=== PATIENT | male | born 1955 | race Caucasian/White ===

== ENCOUNTER 2022-06-07 10:27 | Emergency (ER) | payer BC, SELFPAY ==
--- NOTE | ~2022-06-07 | XR_ITS ---
EXAMINATION: XR CHEST CLINICAL INFORMATION: SOB COMPARISON: None TECHNIQUE: Frontal view of the chest was obtained. FINDINGS: No significant abnormality is noted involving the heart, lungs, mediastinum, bony thorax or soft tissues. XR/XR chest 1V IMPRESSION: Unremarkable chest examination.
--- NOTE | ~2022-06-07 | CT_ITS ---
EXAMINATION: CT HEAD WITHOUT CONTRAST CLINICAL INFORMATION: Numbness left upper extremity. Dizziness. COMPARISON: None. TECHNIQUE: Contiguous axial imaging was performed from the skull base to vertex without intravenous administration of contrast. Coronal and sagittal reformatted images are performed at the CT scanner. [This CT examination was performed using dose optimization techniques as appropriate, variously including the following: *Automated exposure control *Adjustment of mA and/or kV according to patient size (this includes techniques or standardized protocols for targeted exams where dose is matched to indication/reason for exam; i.e. extremities or head) *Use of iterative reconstruction technique] DLP: 750 mGy-cm. FINDINGS: There is no evidence of acute intracranial hemorrhage or territorial infarction. No abnormal mass-effect or midline shift is seen. Cortes to white matter differentiation is well preserved. No extra-axial fluid collections are identified. There is generalized global volume loss. There is mild prominence of the ventricles and the sulci . There are vascular calcifications of the internal carotid arteries bilaterally. There is no osseous abnormality. The mastoid air cells and visualized portions of the paranasal sinuses are well-aerated. CT/CT head/brain wo IV con IMPRESSION: No acute intracranial pathology.
[2022-06-07 10:31] VITALS: BP 148/97; PULSE 103; RESP 18; TEMP 36.6; O2SAT 98; BMI 27.3
--- NOTE | 2022-06-07 10:34 | ECG_ITS ---
Test Reason : dizziness Blood Pressure : / mmHG Vent. Rate : 097 BPM Atrial Rate : 097 BPM P-R Int : 138 ms QRS Dur : 090 ms QT Int : 346 ms P-R-T Axes : 037 000 034 degrees QTc Int : 439 ms Normal sinus rhythm Intra-ventricular conduction delay RSR' or QR pattern in V1 suggests right ventricular conduction delay Borderline ECG No previous ECGs available Referred By: Generic ED Physician Electronically Signed By:BRENDA FERNANDES MD
[2022-06-07 10:44] LABS: MANUAL DIFF FLAG NO
[2022-06-07 10:56] LABS: Basophils Percent Auto 0.5 % (0-2); Eosinophils Percent Auto 0.5 % (0-4); Hemoglobin 16.1 g/dl (14.0-18.0); Imm Gran Abs Auto 0.03 X10*3/uL (0.00-0.03); Imm Gran Pct Auto 0.5 % (0.0-0.4); Lymphocytes Absolute Auto 1.7 X10*3/uL (1.2-4.9); Lymphocytes Percent Auto 29.3 % (20-40); Mean Corpuscular HGB Conc 34.3 g/dl (31.0-36.0); Mean Corpuscular Hemoglobin 31.4 pg (27.0-33.0); Mean Corpuscular Volume 91.6 fL (80.0-98.0); Mean Platelet Volume 9.8 fL (9.4-12.4); Monocytes Absolute Auto 0.5 X10*3/uL (0.1-1.2); Monocytes Percent Auto 9.3 % (2-11); Neutrophils Absolute Auto 3.5 x10*3/uL (2.0-8.3); Neutrophils Percent Auto 59.9 % (45-73); Platelet Count 291 X10*3/uL (160-400); Red Blood Count 5.13 X10*6/uL (4.60-5.80); Red Cell Distribution Width 12.7 % (11.0-16.0); White Blood Count 5.8 X10*3/uL (4.8-10.8)
[2022-06-07 11:05] LABS: Anion Gap 15 (12-20); Blood Urea Nitrogen 10 mg/dL (9-16); Calcium 9.4 mg/dL (8.4-10.2); Carbon Dioxide 23 mmol/L (22-29); Chloride 107 mmol/L (96-108); Creatinine Clr Calc Pharmacy 82.7; Estimated Glomerular Filt Rate > 60; Glucose Random 121 mg/dL (60-115); Potassium 4.1 mmol/L (3.3-5.1); Sodium 141 mmol/L (135-145)
[2022-06-07 11:08] LABS: Troponin-I High Sensitivity < 3.5 ng/L (<3.5-35.0)
[2022-06-07 15:06] VITALS: BP 179/98; PULSE 85; RESP 18; TEMP 36.3; O2SAT 98
--- NOTE | 2022-06-07 15:10 | ED_ITS ---
HPI - General Adult General Chief complaint: Dizziness Stated complaint: dizzy, pain and numbness in L leg. Time Seen by Provider: 06/07/22 23:50 Related Data Allergies Allergy/AdvReac Type Severity Reaction Status Date / Time codeine AdvReac Intermediate Vomiting Verified 06/07/22 15:10 [facility] Social History Social History Advance Directives: No Advance Directives Information Provided: No Physical Exam ED Vital Signs: Vital Signs - 24 hr 06/07/22 10:31 06/07/22 15:06 Temperature 97.9 F 97.3 F Pulse Rate 103 H 85 Respiratory Rate 18 18 Blood Pressure 148/97 H 179/98 H Pulse Oximetry 98 98 Oxygen Delivery Method Room Air Room Air BMI result Body Mass Index 27.3 Course Course Course Narrative: RME--67yoM c/o dizziness, fatigue, L leg and arm cramping and numbness x days. Denies CP/SOB, N/V/D Plan: EKG, Labs, CXR, Head CT, UA ordered Medical Decision Making Lab Data Result diagrams: 06/07/22 10:40 06/07/22 10:40 Labs: Lab Results 06/07/22 06/07/22 06/07/22 Range/Units 10:40 10:40 10:40 WBC 5.8 (4.8-10.8) X10*3/uL RBC 5.13 (4.60-5.80) X10*6/uL Hgb 16.1 (14.0-18.0) g/dl Hct 47.0 (42.0-52.0) % MCV 91.6 (80.0-98.0) fL MCH 31.4 (27.0-33.0) pg MCHC 34.3 (31.0-36.0) g/dl RDW 12.7 (11.0-16.0) % Plt Count 291 (160-400) X10*3/uL MPV 9.8 (9.4-12.4) fL Immature Gran % (Auto) 0.5 H (0.0-0.4) % Neut % (Auto) 59.9 (45-73) % Lymph % (Auto) 29.3 (20-40) % [place] % (Auto) 9.3 (2-11) % Eos % (Auto) 0.5 (0-4) % Baso % (Auto) 0.5 (0-2) % Lymph # (Auto) 1.7 (1.2-4.9) X10*3/uL [place] # (Auto) 0.5 (0.1-1.2) X10*3/uL Eos # (Auto) 0.0 (0.0-0.4) X10*3/uL Baso # (Auto) 0.0 (0.0-0.2) X10*3/uL Abs Immat Gran (auto) 0.03 (0.00-0.03) X10*3/uL Absolute Neuts (auto) 3.5 (2.0-8.3) x10*3/uL Absolute Nucleated RBC 0.000 (0.0-0.012) X10*3/uL Nucleated RBC % (auto) 0.0 (0.0-0.2) /100WBC Sodium 141 (135-145) mmol/L Potassium 4.1 (3.3-5.1) mmol/L Chloride 107 (96-108) mmol/L Carbon Dioxide 23 (22-29) mmol/L Anion Gap 15 (12-20) BUN 10 (9-16) mg/dL Creatinine 0.89 (0.5-1.4) mg/dL Estim Creat Clear Calc 82.7 Estimated GFR > 60 Random Glucose 121 H (60-115) mg/dL Calcium 9.4 (8.4-10.2) mg/dL Magnesium 2.1 (1.6-2.6) mg/dL Total Bilirubin 0.7 (0.0-1.0) mg/dL Direct Bilirubin 0.2 (0.0-0.5) mg/dL AST 16 (5-37) U/L ALT 25 (0-40) U/L Alkaline Phosphatase 49 (39-117) U/L Total Creatine Kinase 59 (38-174) U/L Troponin I High Sens < 3.5 (<3.5-35.0) ng/L Total Protein 7.0 (6.5-8.0) g/dL Albumin 4.4 (3.5-5.0) g/dL Discharge Plan Discharge Clinical Impression: Fatigue, Dizziness Patient Disposition: Elopement Interventions: ED Discharge Assessment Last Done: 06/08/22 00:10 Discharge Date/Time: 06/08/22 00:11
[2022-06-07 15:25] LABS: Alanine Aminotransferase 25 U/L (0-40); Albumin Level 4.4 g/dL (3.5-5.0); Alkaline Phosphatase 49 U/L (39-117); Aspartate Amino Transferase 16 U/L (5-37); Bilirubin Direct 0.2 mg/dL (0.0-0.5); Bilirubin Total 0.7 mg/dL (0.0-1.0); Magnesium 2.1 mg/dL (1.6-2.6)
== END 2022-06-08 00:11 | disposition left against medical advice (07) ==
PROVIDERS: Physician Assistant; Emergency Provider Emergency Medicine; PCP Internal Medicine
DX: R42 Dizziness and giddiness (principal); R53.83 Other fatigue
CPT/HCPCS: 36415; 70450; 71045; 80048; 80076; 82550; 83735; 84484; 85025; 93005; 99283; 99284

== ENCOUNTER 2023-01-10 07:09 | Emergency (ER) | payer BC, SELFPAY ==
[2023-01-10 07:20] VITALS: BP 150/83; PULSE 99; RESP 18; TEMP 35.8; O2SAT 97; BMI 25.8
[2023-01-10 09:10] LABS: Appearance Urine Clear; Glucose Urine UA Negative (Negative); Leukocyte Esterase Urine Trace (Negative); Nitrite Urine Negative (Negative); UMIC TRIGGER UACC YES; Urine Blood Large (3+) (Negative); Urine Ketones Negative (Negative); Urine Protein 30 (1+) mg/dL (Neg-Trace)
[2023-01-10 09:12] LABS: Color Urine Yellow
[2023-01-10 09:13] LABS: Bacteria Urine None Seen (None Seen); Hyaline Casts Urine 0-2 /LPF (0-2); RBC Urine >20 /HPF (0-2); Squamous Epithelial Cell Urine 0-2 /HPF (0-2); WBC Urine 0-5 /HPF (0-5)
--- NOTE | 2023-01-10 09:33 | ED.ABDPAIN ---
HPI - Abdominal Pain General Chief Complaint: Abdominal Pain Stated Complaint: abd pain Time Seen by Provider: 01/10/23 07:25 Source: patient Mode of arrival: ambulatory Limitations: no limitations History of Present Illness HPI narrative: 67-year-old male presents with lower abdominal pain. The pain is moderate to severe. The pain radiates to the back. It is associated with mild nausea. He has had significantly decreased urine output and dysuria. He has had no fevers or chills. There is no clear relieving or exacerbating features. He denies any hematuria. He was seen by his primary care provider and started on Bactrim. Ultimately urinalysis demonstrated no evidence of urinary tract infection. Related Data Previous Rx's Medication Instructions Recorded ciprofloxacin HCl 500 mg tablet 500 mg PO BID #14 tabs 01/10/23 (Cipro) tamsulosin 0.4 mg capsule (Flomax) 0.4 mg PO DAILY #14 caps 01/10/23 Allergies Allergy/AdvReac Type Severity Reaction Status Date / Time codeine AdvReac Intermediate Vomiting Verified 01/10/23 07:23 Review of Systems Review of Systems CONSTITUTIONAL: Denies weight loss, fever and chills. HEENT: Denies changes in vision and hearing. RESPIRATORY: Denies SOB and cough. CV: Denies palpitations no CP. GI: + abdominal pain, negative nausea, vomiting and diarrhea. : See HPI MSK: Denies myalgia and joint pain. SKIN: Denies rash and pruritus. NEUROLOGICAL: Denies headache and syncope. PSYCHIATRIC: Denies recent changes in mood. Denies anxiety and depression. All other ROS are negative unless in HPI PMFSH Social History Social History Advance Directives: No Physical Exam ED Vital Signs: Vital Signs - 24 hr 01/10/23 07:20 Temperature 96.4 F L Pulse Rate 99 Respiratory Rate 18 Blood Pressure 150/83 H Pulse Oximetry 97 BMI result Body Mass Index 25.8 GEN: Well developed, no acute distress, alert, oriented HEENT: Normocephalic, atraumatic, normal external ears, nose appears normal, no oropharyngeal edema or exudates Eyes: Normal to appearance Neck: Supple, no lymphadenopathy Respiratory: Talks in complete sentences, no respiratory distress, clear to auscultation bilaterally Cardiovascular: Regular rate and rhythm, no murmurs rubs or gallops Abdomen: Lower abdominal distention, palpable bladder to the umbilicus, tenderness, no rebound or guarding Back: No CVA tenderness Extremities: No clubbing cyanosis or edema Neurologic: No focal neurologic deficits, cranial nerves 2-12 intact, strength is 5/5 bilaterally Skin: No rash Course Course Course Narrative: Patient presents with acute urinary obstruction. Suspect prostatitis. Henry catheter was placed. His pain significantly diminished after 2 L of urine was drained. Patient will start tamsulosin and antibiotics and follow-up with Urology early next week for Henry catheter removal. Medical Decision Making Medical Decision Making [facility] Narrative: 67-year-old male presents with urinary symptoms as well as lower abdominal pain. S suspect patient has now had obstruction. Will do bladder scan, obtain urinalysis and possible Henry catheter. If his bladder scan is negative, could be diverticulitis, colitis, mass effect, appendicitis, UTI, pyelonephritis. Would consider additional laboratory analysis and CT scan. Differential Diagnosis Differential Diagnoses: The differential diagnosis associated with the presentation includes (See above) Urinary tract outlet obstruction Lab Data [facility] Lab Attestation statement: I reviewed the patient's lab results. Labs: Lab Results 01/10/23 Range/Units 08:55 Urine Color Yellow Urine Appearance Clear Urine pH 6.0 (5.0-9.0) Ur Specific [place] 1.010 (1.005-1.025) Urine Protein 30 (1+) H (Neg-Trace) mg/dL Urine Glucose (UA) Negative (Negative) mg/dL Urine Ketones Negative (Negative) mg/dL Urine Blood Large (3+) H (Negative) Urine Nitrite Negative (Negative) Ur Leukocyte Esterase Trace H (Negative) Urine RBC >20 H (0-2) /HPF Urine WBC 0-5 (0-5) /HPF Ur Squamous Epith Cells 0-2 (0-2) /HPF Urine Bacteria None Seen (None Seen) Hyaline Casts 0-2 (0-2) /LPF Independent Historian Clinical information obtained from an independent historian. History obtained from or confirmed by: Spouse Prescription Management I considered prescription management with: Pain Medication and Antibiotic Discharge Plan Discharge Clinical Impression: Acute urinary retention Patient Disposition: Home, Self-Care Instructions: Urinary Retention in Men (ED), Henry Catheter Placement and Care (ED) Prescriptions: New ciprofloxacin HCl [Cipro] 500 mg tablet 500 mg PO BID Qty: 14 0RF tamsulosin [Flomax] 0.4 mg capsule 0.4 mg PO DAILY Qty: 14 0RF Referrals: Nas Quintero MD [Physician] - 3 days
[2023-01-10] MEDS: levoFLOXacin 500 MG TABLET PO (09:38)
[2023-01-10] MEDS: Tamsulosin HCL 0.4 MG CAPSULE PO (09:38)
== END 2023-01-10 09:44 | disposition home or self-care (01) ==
PROVIDERS: Emergency Provider Emergency Medicine; PCP Internal Medicine
DX: N13.9 Obstructive and reflux uropathy, unspecified (principal); R33.9 Retention of urine, unspecified; R11.2 Nausea with vomiting, unspecified; M54.50 Low back pain, unspecified
CPT/HCPCS: 51798; 81001; 99283; 99284

== ENCOUNTER 2023-02-08 10:22 | Outpatient (AMB) | payer BC, SELFPAY ==
--- NOTE | 2023-02-08 09:31 | MHC.OFFVIS ---
Intake Intake Visit Reasons: ER follow up/voiding trial Intake Note: NEW Patient presents today to established treatment for Acute Urinary Retention/ER follow-up/Voiding Trial. Meds- none Allergies to Antibiotic- Penicillin's Blood Thinner- none PVR- Studio Camera Operator Required: No Accompanied by: Self / Same As Patient Allergies codeine Adverse Reaction (Intermediate, Verified 02/08/23 10:43) Vomiting Medication List - Last Reconciled 02/08/23 by Nas Quintero MD duloxetine 40 mg PO DAILY tamsulosin (Flomax) 0.4 mg PO BEDTIME zolpidem 10 mg PO DAILY PRN HPI HPI Comments History of Present Illness Details Rosalio is a 67-year-old male who presents to the office as a new patient evaluation for ER follow-up and voiding trail. 02/08/23-- The patient presented to [facility] with his fiance. The patient visited the ER on 01/10/23 and Henry catheter was placed for urinary retention. He presented to ED for lower abdominal pain radiating to the back. The patient complained of decreased urine output and dysuria. He was prescribed with Cipro 500 mg BIS for 7 days along with 14-days course of tamsulosin 0.4 mg QD. States visiting the PCP before the ER visit for urinary frequency after every 20 minutes with mild dysuria and was treated with antibiotics. 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 Mentions PSA testing with his PCP. He is currently on duloxetine 40 mg daily, omeprazole 40 mg daily, and zolpidem 10 mg daily. The patient states he has symptoms of neuropathy. Evaluation today: Bladder scan PVR1: 509 mL. The patient was unable to void. 16 Fr Henry catheter was placed. The patient was educated on how to plug the end of the catheter and drain it every 3 hours after which he can use the gravity bag at night time. It was discussed that with age the prostate gets larger, it can affect the flow of the urine and over time the bladder muscle may apply more pressure to start the urine stream and in doing so the bladder muscle can start to thicken and change which may cause bladder spasm with symptoms of urgency and frequency. Plan: CTAP with contrast was ordered. Continue tamsulosin 0.4 mg QD. Cysctoscopy discussed to be scheduled. Review of Systems Const All systems reviewed & are unremarkable except as noted in HPI and below Reports no additional complaints Eyes Reports no additional complaints ENT Reports no additional complaints Card Denies dyspnea Resp Denies cough and Denies dyspnea GI Reports no additional complaints Musc Reports no additional complaints Skin/Breast Denies rash and Denies unusual bruising Neuro Reports no additional complaints Psych Reports no additional complaints Endo Reports no additional complaints Maury/Lymph Reports no additional complaints Aller/Immun Reports no additional complaints Physical Exam Const General: healthy appearing, no acute distress and well developed Orientation/consciousness: patient oriented x3 HEENT Head: Yes normocephalic and Yes atraumatic Eyes Conjunctivae: conjunctivae normal Neck Neck: Yes normal visual inspection Chest Chest palpation & inspection: normal inspection of the chest Resp Effort & Inspection: normal respiratory effort Cardio Rate: regular rate GI Inspection: Yes normal to inspection Palpation (GI): Soft to palpation Skin General skin exam: no rashes or lesions noted Neuro General: patient oriented x3 Extrem General: No pedal edema Psych Appearance: grossly normal Affect: normal affect Office Procedures Bladder/Catheter Procedure Details: 120 mls sterile water instilled into bladder, 18 fr cath w 10 ml balloon removed, pt tolerated removal well, urinal given. pt returned to office, per Dr Sahni pt given macrobid 100 mg 1 tab , prepped with one lido urojet and 16 coude cath with blue plug placed, pt declined night time bag. 08819-Lmhjrschlt of Bladder Procedure code (CPT) selection complete Assessment & Plan Assessment & Plan (1) Urinary retention: Code(s): R33.9 - Retention of urine, unspecified Plan CTAP with contrast was ordered. Continue tamsulosin 0.4 mg QD. Cysctoscopy discussed to be scheduled. Orders: Orders CT abdomen pelvis wo/w IV con 02/08/23 R33.9 - Retention of urine, unspecified Urine Culture 02/08/23 N39.0 - Urinary tract infection, site not specified AMB Bladder/Catheter Procedure 02/08/23 R33.8 - Other retention of urine Medications: New tamsulosin (Flomax) 0.4 mg PO BEDTIME 30 caps 1RF Patient Instructions: The patient had an opportunity to ask questions regarding treatment plan. All questions were answered. Imaging, Laboratory studies and physical exam results were discussed and reviewed in detail. No major barriers to understanding were identified. The patient expressed understanding and agreement with the above treatment plan. The patient is aware they should contact our office by phone for worsening of their current condition or the appearance of new symptoms. Compliance is encouraged with any medications and followup testing that is ordered. It is a privilege to be allowed the opportunity to participate in the urologic care of your patient. If you have any questions or concerns regarding treatment for the above conditions please do not hesitate to contact me. The office telephone contact is [phone]. This note is constructed in part using voice recognition software. While every effort has been made to ensure accuracy senior market intelligence consultant errors may have been included. Yours sincerely, Nas Quintero MD Coding Level of Care Code New Pt Level 4 (78096) Diagnoses Urinary retention R33.9 CPT Codes Bladder/Catheter Procedure - CPT: 63144-Ftcihajghb of Bladder ([id number])
== END 2023-02-08 11:49 | disposition home or self-care (01) ==
PROVIDERS: PCP Internal Medicine; Visit Provider Urology
DX: R33.9 Retention of urine, unspecified (principal)
CPT/HCPCS: 51700; 99204

== ENCOUNTER 2023-02-08 10:22 | Outpatient (REF) | payer BC, SELFPAY | END 2023-02-08 10:23 | disposition home or self-care (01) | LOC: HO.LAB 10:22 | PROVIDERS: PCP Internal Medicine; Visit Provider Urology | DX: N39.0 Urinary tract infection, site not specified (principal); R33.9 Retention of urine, unspecified | CPT/HCPCS: 51700; 87086 ==

== ENCOUNTER 2023-03-11 13:06 | Outpatient (REF) | payer BC, SELFPAY ==
[2023-03-11 16:12] LABS: Appearance Urine Turbid; Color Urine Yellow; Glucose Urine UA Negative (Negative); Leukocyte Esterase Urine Large (3+) (Negative); Nitrite Urine Negative (Negative); PH 5.5 (5.0-9.0); Specific Gravity - Urine 1.015 (1.005-1.025); UMIC TRIGGER UA YES; Urine Blood Moderate (2+) (Negative); Urine Ketones Negative (Negative); Urine Protein 30 (1+) mg/dL (Neg-Trace)
[2023-03-11 16:28] LABS: Bacteria Urine None Seen (None Seen); Hyaline Casts Urine 0-2 /LPF (0-2); Squamous Epithelial Cell Urine 0-2 /HPF (0-2); WBC Urine >50 /HPF (0-5)
== END 2023-03-11 13:07 | disposition home or self-care (01) ==
LOC: HO.HMGCLDS 13:06
PROVIDERS: PCP Internal Medicine; Visit Provider Urology
DX: R33.9 Retention of urine, unspecified (principal)
CPT/HCPCS: 81001; 87086

== ENCOUNTER 2023-03-13 10:47 | Outpatient (AMB) | payer BC, SELFPAY ==
--- NOTE | 2023-03-13 11:22 | AM.OFFVISNUR ---
Intake Intake Visit Reasons: voiding trial Allergies codeine Adverse Reaction (Intermediate, Verified 02/08/23 10:43) Vomiting Office Procedures Bladder/Catheter Procedure Details: 120 mls sterile water instilled into bladder, 16 fr cath removed. pt tolerated removal well. urinated into urinal 140 mls yellow urine. bladder scanned for 96 mls. pt instructed to increase fluid intake today, call office by 2 pm if unable to or having difficulty urinating, has cysto scheduled with Dr Sahni 03/22. pt agreeable to plan. 56052-[id number] of Bladder Procedure code (CPT) selection complete Post Void Residual Post Residual Void Post Void Residual (PVR): 96 [id number] Void Residual by ultrasound Coding Diagnoses CPT Codes Bladder/Catheter Procedure - CPT: 11327-Xowchasprk of Bladder ([id number]) Post Residual Void - PVR CPT Code: 91191-Htqx Void Residual by ultrasound ([id number]) Assessment & Plan Assessment & Plan Orders: Orders AMB Bladder/Catheter Procedure Today R33.9 - Retention of urine, unspecified AMB Post Void Residual by ultrasound Today R33.9 - Retention of urine, unspecified
== END 2023-03-13 12:01 | disposition home or self-care (01) ==
PROVIDERS: PCP Internal Medicine; Visit Provider Urology
DX: R33.9 Retention of urine, unspecified (principal)

== ENCOUNTER → 2023-03-13 10:47 | Outpatient (BNVA) | payer BC, SELFPAY | PROVIDERS: PCP Internal Medicine; Visit Provider Urology | DX: R33.9 Retention of urine, unspecified (principal) | CPT/HCPCS: 51700; 51798 ==

== ENCOUNTER 2023-03-15 08:18 | Outpatient (REF) | payer BC, SELFPAY ==
--- NOTE | ~2023-03-15 | CT_ITS ---
EXAMINATION: CT ABDOMEN AND PELVIS WITHOUT AND WITH CONTRAST CLINICAL INFORMATION: Urinary retention COMPARISON: None available. TECHNIQUE: Multidetector volumetric imaging was performed of the abdomen and pelvis before and after the IV administration of 85 mL of Omnipaque 350 intravenous contrast. Sagittal and coronal reformatted images were obtained on the technologist's workstation. This CT examination was performed using dose optimization techniques as appropriate, variously including the following: *Automated exposure control *Adjustment of mA and/or kV according to patient size (this includes techniques or standardized protocols for targeted exams where dose is matched to indication/reason for exam; i.e. extremities or head) *Use of iterative reconstruction technique DLP: 769 mGy-cm FINDINGS: LUNG BASES: The visualized lung bases are unremarkable. LIVER, GALLBLADDER, AND BILIARY TREE: The liver is normal in size, shape, and attenuation. No focal hepatic lesion or biliary ductal dilatation is present. The gallbladder is unremarkable with no evidence of radiopaque gallstones, gallbladder wall thickening, or obvious pericholecystic inflammatory changes. PANCREAS: Unremarkable SPLEEN: Unremarkable ADRENAL GLANDS: Fullness of the left adrenal gland. No definite nodule seen. The right adrenal gland is normal. KIDNEYS AND URETERS: There is a 4 mm stone in the lower pole of the left kidney. There are bilateral peripelvic and left renal cortical cysts. No imaging follow-up recommended. No hydronephrosis. There is some distortion of the collecting systems from the cyst. Collecting systems are otherwise normal. There is good opacification of the right ureter with excreted contrast which is normal-appearing. There is not optimal contrast opacification of the left mid and distal ureter. The left ureter does not appear dilated. BLADDER: There is diffuse bladder wall thickening. There is some mild stranding of the perivesicular fat. There is a small amount of air in the bladder. Prostate gland is enlarged and heterogeneous appearing and protrudes into the base of the bladder. No definite bladder mass is appreciated. GASTROINTESTINAL TRACT: There is diverticulosis of the colon. No evidence of diverticulitis. Small and large bowel is otherwise unremarkable. The appendix is unremarkable. There may be fold thickening of the stomach. ABDOMINAL WALL: Small umbilical hernia containing fat. Bilateral inguinal hernias containing fat. LYMPH NODES: There is an enlarged right pelvic sidewall lymph node measuring 1 x 1.5 cm axial image 70 series 13. There is a smaller right internal iliac pelvic lymph node measuring 5 mm axial image 75 series 13. There is a small right common iliac lymph node measuring 8 mm in short axis axial image 61 series 13. VASCULAR: Unremarkable PELVIC VISCERA: The prostate gland is enlarged and heterogeneous appearing and protrudes into the base of the bladder. The prostate gland measures 6 x 6 x 6 cm in dimension and is lobulated in contour. The seminal vesicles appear enlarged. There are cystic changes. OSSEOUS STRUCTURES: Small sclerotic lesion in the right iliac bone, right posterior 11th rib and L3 vertebral body. Degenerative changes of the spine. CT/CT abdomen pelvis wo/w IV con IMPRESSION: Enlarged very heterogeneous prostate gland that protrudes into the base of the bladder. There is some stranding of the perivesicular fat and mild diffuse bladder wall thickening. No bladder mass is appreciated. Small amount of air in the bladder. Clinically correlate i.e. has there been recent bladder catheterization. Differential would include infection and less likely fistula. Both seminal vesicles are enlarged with cystic changes. Right pelvic retroperitoneal lymphadenopathy. There is a slightly enlarged right iliac bifurcation or pelvic sidewall lymph node. Other pelvic lymph nodes are normal in size. Distorted bilateral renal collecting systems from bilateral renal peripelvic cysts. Collecting systems are otherwise normal. Normal-appearing right ureter. Left ureter not optimally opacified with excreted contrast. Fullness of the left adrenal gland. No definite adrenal mass. Mild diverticulosis of the colon. Question prominent folds or thickening in the proximal stomach. Fleischner guidelines were followed.
[2023-03-15] MEDS: iohexoL 350 MG/ML 75 ML INFUS..BTL 85 ML IV (09:41)
[2023-03-18 09:48] LABS: Creatinine POC 0.9 mg/dL (0.5-1.4); GFR POC > 60
== END 2023-03-15 08:19 | disposition home or self-care (01) ==
LOC: HO.CT 08:18
PROVIDERS: PCP Internal Medicine; Visit Provider Urology
DX: R33.9 Retention of urine, unspecified (principal)
CPT/HCPCS: 74178; 82565; Q9967

== ENCOUNTER 2023-03-17 14:34 | Emergency (ER) | payer BC, SELFPAY ==
--- NOTE | ~2023-03-17 | US_ITS ---
EXAMINATION: US SCROTUM CLINICAL INFORMATION: Left pain and swelling.. COMPARISON: None available. TECHNIQUE: A sonogram of the scrotum was performed assessing mckee-scale appearance and color Doppler flow. Spectral Doppler analysis of the arterial and venous flow were performed in the testes bilaterally. FINDINGS: RIGHT: Right testicle measures 5.1 x 2.9 x 3.9 cm, volume 29.7 mL. No focal testicular parenchymal lesions are visualized. Spectral Doppler analysis of the arterial and venous flow is increased in the right testis. Incidental finding of a right appendix testes along the superior pole is noted. Right epididymal head is normal in size. There anechoic cysts seen in the body of the right epididymis measuring 0.5 x 0.3 x 0.4 cm. No right hydrocele or varicocele is seen. Right epididymal Doppler flow is normal. LEFT: Left testicle measures 5.4 x 3.8 x 3.5 cm, volume 37.6 mL. No focal testicular parenchymal lesions are visualized. Spectral Doppler analysis of the arterial and venous flow is increased in the left testis. Left epididymal head is normal in size. There is a complex left hydrocele with septations. No varicocele is seen. Left epididymal Doppler flow is normal. US/US scrotum doppler IMPRESSION: 1. Complex left hydrocele with septations. 2. Small right epididymal body cyst. 3. Normal testes with increased vascularity. Incidental finding of right appendix testes.
--- NOTE | ~2023-03-17 | US_ITS ---
EXAMINATION: US SCROTUM CLINICAL INFORMATION: Left pain and swelling.. COMPARISON: None available. TECHNIQUE: A sonogram of the scrotum was performed assessing mckee-scale appearance and color Doppler flow. Spectral Doppler analysis of the arterial and venous flow were performed in the testes bilaterally. FINDINGS: RIGHT: Right testicle measures 5.1 x 2.9 x 3.9 cm, volume 29.7 mL. No focal testicular parenchymal lesions are visualized. Spectral Doppler analysis of the arterial and venous flow is increased in the right testis. Incidental finding of a right appendix testes along the superior pole is noted. Right epididymal head is normal in size. There anechoic cysts seen in the body of the right epididymis measuring 0.5 x 0.3 x 0.4 cm. No right hydrocele or varicocele is seen. Right epididymal Doppler flow is normal. LEFT: Left testicle measures 5.4 x 3.8 x 3.5 cm, volume 37.6 mL. No focal testicular parenchymal lesions are visualized. Spectral Doppler analysis of the arterial and venous flow is increased in the left testis. Left epididymal head is normal in size. There is a complex left hydrocele with septations. No varicocele is seen. Left epididymal Doppler flow is normal. US/US scrotum IMPRESSION: 1. Complex left hydrocele with septations. 2. Small right epididymal body cyst. 3. Normal testes with increased vascularity. Incidental finding of right appendix testes.
[2023-03-17 14:58] VITALS: BP 159/92; PULSE 101; RESP 20; TEMP 37.1; O2SAT 99; BMI 24.6
--- NOTE | 2023-03-17 15:04 | ED_ITS ---
HPI - Male Genitourinary General Chief complaint: Urogenital-Male Stated complaint: L testicle swollen / abd pain Time Seen by Provider: 03/17/23 17:39 Source: patient Mode of arrival: ambulatory Limitations: no limitations History of Present Illness HPI Narrative: Patient with history of BPH with urinary retention status post Stevens catheter placement on 03/14 comes for increased swelling of the left testicle since early today with redness of the scrotal area no fever no chills patient also noticed some pus discharge around the Stevens catheter. Related Data Home Medications Medication Instructions Recorded Confirmed duloxetine 20 mg capsule,delayed 40 mg PO DAILY 02/08/23 02/08/23 release zolpidem 10 mg tablet 10 mg PO DAILY PRN 02/08/23 02/08/23 Previous Rx's Medication Instructions Recorded bethanechol chloride 25 mg tablet 25 mg PO BID 30 days #60 tabs 03/15/23 tamsulosin 0.4 mg capsule 0.8 mg PO DAILY 30 days #60 caps 03/15/23 cefuroxime axetil 500 mg tablet 500 mg PO BID 7 days #14 tabs 03/17/23 doxycycline hyclate 100 mg tablet 100 mg PO BID #20 tabs 03/17/23 Allergies Allergy/AdvReac Type Severity Reaction Status Date / Time codeine AdvReac Intermediate Vomiting Verified 02/08/23 10:43 Review of Systems Review of Systems: Yes all other systems are reviewed and are negative [facility] Social History Social History Alcohol intake: current Alcohol intake frequency: holidays/special occasions only Smoked in Last 30 Days: No Use of substances other than those prescribed or required for medical reasons: Yes Substance Use Type: Marijuana Advance Directives: No Advance Directives Information Provided: No Physical Exam Vital Signs: Vital Signs: Last Vital Signs Temp 98.7 F 03/17/23 14:58 Pulse 91 03/17/23 17:48 Resp 14 03/17/23 17:48 BP 146/80 H 03/17/23 17:48 Pulse Ox 100 03/17/23 17:48 O2 Del Method Room Air 03/17/23 17:48 BMI result Body Mass Index 24.6 Appearance: Alert. Oriented X3. No acute distress. Neck: Normal inspection. Neck supple. CVS: Normal heart rate and rhythm. Pulses normal. Respiratory: No respiratory distress. Equal air entry bilateral, no wheezing/rales/rhonchi Abdomen: Soft and nontender. Bowel sounds are present, no mass palpable, no CVA tenderness Skin: Skin warm and dry. Normal skin color. Normal skin turgor. Extremities: No lower extremity edema. No calf tenderness Neuro: Oriented X 3. No motor deficit. No sensory deficit.No cerebellar signs , cranial nerves II-XII intact Course Course Course Narrative: RME: 67 yold male presents to the ED for left testicular redness and swelling. patient states no recent trauma to scrotum. patient has h stevens. labs and US ordered Medications Administered Discontinued Medications Generic Name Dose Route Start Last Admin Trade Name Freq PRN Reason Stop Dose Admin Cefuroxime Axetil 500 mg 03/17/23 18:09 03/17/23 18:21 Cefuroxime Axetil 500 Mg Tablet PO 03/17/23 18:10 500 mg ONCE ONE Administration Doxycycline Monohydrate 100 mg 03/17/23 18:08 03/17/23 18:21 Doxycycline Monohydrate 100 Mg Capsule PO 03/17/23 18:09 100 mg ONCE ONE Administration Medical Decision Making Lab Data 03/17/23 15:13 03/17/23 15:13 Labs: Lab Results 03/17/23 03/17/23 03/17/23 Range/Units 15:13 15:13 15:17 WBC 13.9 H (4.8-10.8) X10*3/uL RBC 4.60 (4.60-5.80) X10*6/uL Hgb 14.5 (14.0-18.0) g/dl Hct 42.8 (42.0-52.0) % MCV 93.0 (80.0-98.0) fL MCH 31.5 (27.0-33.0) pg MCHC 33.9 (31.0-36.0) g/dl RDW 12.7 (11.0-16.0) % Plt Count 318 (160-400) X10*3/uL MPV 9.1 L (9.4-12.4) fL Immature Gran % (Auto) 0.5 H (0.0-0.4) % Neut % (Auto) 78.7 H (45-73) % Lymph % (Auto) 10.7 L (20-40) % [place] % (Auto) 9.2 (2-11) % Eos % (Auto) 0.6 (0-4) % Baso % (Auto) 0.3 (0-2) % Lymph # (Auto) 1.5 (1.2-4.9) X10*3/uL [place] # (Auto) 1.3 H (0.1-1.2) X10*3/uL Eos # (Auto) 0.1 (0.0-0.4) X10*3/uL Baso # (Auto) 0.0 (0.0-0.2) X10*3/uL Abs Immat Gran (auto) 0.07 H (0.00-0.03) X10*3/uL Absolute Neuts (auto) 10.9 H (2.0-8.3) x10*3/uL Absolute Nucleated RBC 0.000 (0.0-0.012) X10*3/uL Nucleated RBC % (auto) 0.0 (0.0-0.2) /100WBC Sodium 138 (135-145) mmol/L Potassium 3.9 (3.3-5.1) mmol/L Chloride 105 (96-108) mmol/L Carbon Dioxide 23 (22-29) mmol/L Anion Gap 14 (12-20) BUN 10 (9-16) mg/dL Creatinine 0.97 (0.5-1.4) mg/dL Estim Creat Clear Calc 75.9 Estimated GFR > 60 Random Glucose 97 (60-115) mg/dL Calcium 10.0 D (8.4-10.2) mg/dL Total Bilirubin 0.7 (0.0-1.0) mg/dL AST 11 (5-37) U/L ALT 13 (0-40) U/L Alkaline Phosphatase 59 (39-117) U/L Total Protein 7.2 (6.5-8.0) g/dL Albumin 4.0 (3.5-5.0) g/dL Urine Color Yellow Urine Appearance Cloudy Urine pH 6.0 (5.0-9.0) Ur Specific [place] 1.010 (1.005-1.025) Urine Protein 30 (1+) H (Neg-Trace) mg/dL Urine Glucose (UA) Negative (Negative) mg/dL Urine Ketones Negative (Negative) mg/dL Urine Blood Moderate (2+) H (Negative) Urine Nitrite Negative (Negative) Ur Leukocyte Esterase Large (3+) H (Negative) Urine RBC 6-10 H (0-2) /HPF Urine WBC >50 H (0-5) /HPF Ur Squamous Epith Cells 0-2 (0-2) /HPF Urine Bacteria None Seen (None Seen) Hyaline Casts 0-2 (0-2) /LPF Discharge Plan Discharge Clinical Impression: Acute hydrocele, Urinary tract infection Patient Disposition: Home, Self-Care Instructions: Hydrocele (ED), Urinary Tract Infection in Men (DC) Additional Instructions: You have a hydrocele on the left testicle see your urologist for further management Take antibiotic as prescribed likely have atypical bacteria in your urine Drink plenty of fluids Prescriptions: New cefuroxime axetil 500 mg tablet 500 mg PO BID 7 Days Qty: 14 0RF doxycycline hyclate 100 mg tablet 100 mg PO BID Qty: 20 0RF No Action bethanechol chloride 25 mg tablet 25 mg PO BID 30 Days Qty: 60 1RF tamsulosin 0.4 mg capsule 0.8 mg PO DAILY 30 Days Qty: 60 1RF duloxetine 20 mg capsule,delayed release(DR/EC) 40 mg PO DAILY zolpidem 10 mg tablet 10 mg PO DAILY PRN Interventions: ED Discharge Assessment Last Done: 03/17/23 18:26 Discharge Date/Time: 03/17/23 18:26
[2023-03-17 15:23] LABS: MANUAL DIFF FLAG NO
[2023-03-17 15:27] LABS: Appearance Urine Cloudy; Color Urine Yellow; Glucose Urine UA Negative (Negative); Leukocyte Esterase Urine Large (3+) (Negative); Nitrite Urine Negative (Negative); UMIC TRIGGER UACC YES; Urine Blood Moderate (2+) (Negative); Urine Ketones Negative (Negative); Urine Protein 30 (1+) mg/dL (Neg-Trace)
[2023-03-17 15:29] LABS: Bacteria Urine None Seen (None Seen); Hyaline Casts Urine 0-2 /LPF (0-2); Squamous Epithelial Cell Urine 0-2 /HPF (0-2); UACC Culture Trigger YES; WBC Urine >50 /HPF (0-5)
[2023-03-17 15:29] LABS: Basophils Percent Auto 0.3 % (0-2); Eosinophils Absolute Auto 0.1 X10*3/uL (0.0-0.4); Eosinophils Percent Auto 0.6 % (0-4); Hematocrit 42.8 % (42.0-52.0); Hemoglobin 14.5 g/dl (14.0-18.0); Imm Gran Abs Auto 0.07 X10*3/uL (0.00-0.03); Imm Gran Pct Auto 0.5 % (0.0-0.4); Lymphocytes Absolute Auto 1.5 X10*3/uL (1.2-4.9); Lymphocytes Percent Auto 10.7 % (20-40); Mean Corpuscular HGB Conc 33.9 g/dl (31.0-36.0); Mean Corpuscular Hemoglobin 31.5 pg (27.0-33.0); Mean Platelet Volume 9.1 fL (9.4-12.4); Monocytes Absolute Auto 1.3 X10*3/uL (0.1-1.2); Monocytes Percent Auto 9.2 % (2-11); Neutrophils Absolute Auto 10.9 x10*3/uL (2.0-8.3); Neutrophils Percent Auto 78.7 % (45-73); Platelet Count 318 X10*3/uL (160-400); Red Cell Distribution Width 12.7 % (11.0-16.0); White Blood Count 13.9 X10*3/uL (4.8-10.8)
[2023-03-17 16:02] LABS: Alanine Aminotransferase 13 U/L (0-40); Alkaline Phosphatase 59 U/L (39-117); Anion Gap 14 (12-20); Aspartate Amino Transferase 11 U/L (5-37); Bilirubin Total 0.7 mg/dL (0.0-1.0); Blood Urea Nitrogen 10 mg/dL (9-16); Carbon Dioxide 23 mmol/L (22-29); Chloride 105 mmol/L (96-108); Creatinine Clr Calc Pharmacy 75.9; Estimated Glomerular Filt Rate > 60; Glucose Random 97 mg/dL (60-115); Potassium 3.9 mmol/L (3.3-5.1); Sodium 138 mmol/L (135-145); Total Protein 7.2 g/dL (6.5-8.0)
[2023-03-17 17:48] VITALS: BP 146/80; PULSE 91; RESP 14; O2SAT 100
[2023-03-17] MEDS: Doxycycline Monohydrate 100 MG CAPSULE PO (18:21)
[2023-03-18 05:44] LABS: CT PCR NOT DETECTED (Not Detect.); NG PCR NOT DETECTED (Not Detect.)
== END 2023-03-17 18:26 | disposition home or self-care (01) ==
PROVIDERS: Physician Assistant; Emergency Provider Internal Medicine; PCP Internal Medicine
DX: N43.3 Hydrocele, unspecified (principal); N39.0 Urinary tract infection, site not specified; R10.2 Pelvic and perineal pain; Z79.899 Other long term (current) drug therapy
CPT/HCPCS: 0353U; 36415; 76870; 80053; 81001; 85025; 87086; 87088; 87186; 93975; 99284

== ENCOUNTER 2023-03-17 23:35 | Inpatient (IN) | payer BC, SELFPAY ==
[2023-03-17 23:39] VITALS: BP 104/60; PULSE 102; RESP 18; TEMP 37.1; O2SAT 99; BMI 25.4
[2023-03-18] VITALS (10 sets, daily range): BP systolic 99–141; BP diastolic 57–76; PULSE 92–112; RESP 16–18; TEMP 36.3–39.6; O2SAT 95–99; BMI 25.3
--- NOTE | 2023-03-18 00:15 | ED.MALEGU ---
HPI - Male Genitourinary General Chief complaint: Urogenital-Male Stated complaint: Increased pain with fever Time Seen by Provider: 03/18/23 00:15 Source: patient Mode of arrival: ambulatory Limitations: no limitations History of Present Illness HPI Narrative: Patient with history of BPH status for Henry catheter placement on 03/14 just seen in the ER for left scrotal swelling since yesterday ultrasound showed separate F hydrocele patient went home and had fever of 102 with increased pain in left testicle area. Patient have any fever before but had subjective feeling hot for last 2 days Related Data Home Medications Medication Instructions Recorded Confirmed duloxetine 20 mg capsule,delayed 40 mg PO DAILY 02/08/23 02/08/23 release zolpidem 10 mg tablet 10 mg PO DAILY PRN 02/08/23 02/08/23 Previous Rx's Medication Instructions Recorded bethanechol chloride 25 mg tablet 25 mg PO BID 30 days #60 tabs 03/15/23 tamsulosin 0.4 mg capsule 0.8 mg PO DAILY 30 days #60 caps 03/15/23 cefuroxime axetil 500 mg tablet 500 mg PO BID 7 days #14 tabs 03/17/23 doxycycline hyclate 100 mg tablet 100 mg PO BID #20 tabs 03/17/23 Allergies Allergy/AdvReac Type Severity Reaction Status Date / Time codeine AdvReac Intermediate Vomiting Verified 03/17/23 23:44 Review of Systems Review of Systems: Yes all other systems are reviewed and are negative [facility] Social History Social History Alcohol intake: current Alcohol intake frequency: holidays/special occasions only Substance Use Type: Marijuana Advance Directives: No Advance Directives Information Provided: Yes Physical Exam Vital Signs: Vital Signs: Last Vital Signs Temp 99.6 F 03/18/23 00:47 Pulse 102 H 03/17/23 23:39 Resp 18 03/17/23 23:39 BP 104/60 03/17/23 23:39 Pulse Ox 99 03/17/23 23:39 O2 Del Method Room Air 03/17/23 23:39 BMI result Body Mass Index 25.4 Appearance: Alert. Oriented X3. No acute distress. Eyes: PERRLA, No Nystagmus ENT: Pharynx normal. Oral Mucosa moist Neck: Normal inspection. Neck supple. CVS: Normal heart rate and rhythm. Pulses normal. Respiratory: No respiratory distress. Equal air entry bilateral, no wheezing/rales/rhonchi Abdomen: Soft and nontender. Bowel sounds are present, no mass palpable, no CVA tenderness : Swelling of the left testicle area 2 times of the right side with tenderness and erythema Skin: Skin warm and dry. Normal skin color. Normal skin turgor. Extremities: No lower extremity edema. No calf tenderness Neuro: Oriented X 3. Medications Administered Generic Name Dose Route Start Last Admin Trade Name Freq PRN Reason Stop Dose Admin Sodium Chloride 1,000 mls @ 999 mls/hr 03/18/23 00:21 03/18/23 00:46 Ns IV 03/18/23 01:21 999 mls/hr .Q1H1M ONE Administration Discontinued Medications Generic Name Dose Route Start Last Admin Trade Name Freq PRN Reason Stop Dose Admin Piperacillin Sod/Tazobactam 50 mls @ 100 mls/hr 03/18/23 00:22 03/18/23 00:47 Sod 3.375 gm/ Sodium Chloride IV 03/18/23 00:51 100 mls/hr ONCE ONE Administration Ketorolac Tromethamine 30 mg 03/18/23 00:22 03/18/23 00:46 Ketorolac Tromethamine 30 Mg/Ml Vial IVPUSH 03/18/23 00:23 30 mg ONCE ONE Administration Medical Decision Making Medical Decision Making [facility] Narrative: Patient with left septated hydrocele now comes with fever possible epididymal orchitis case discussed with urologist admit to medical service IV antibiotics Differential Diagnosis Differential Diagnoses: The differential diagnosis associated with the presentation includes Epididymo-orchitis/prostatitis/sepsis Admission/Observation Consideration of admission/observation: Escalation of care including admission/observation considered Consult Healthcare Provider Management of the patient was discussed with: Hospitalist Lab Data [facility] Lab Attestation statement: I reviewed the patient's lab results. Labs: Lab Results 03/18/23 Range/Units 00:38 Lactic Acid 1.1 (0.5-2.0) mmol/L Discharge Plan Discharge Clinical Impression: Acute epididymo-orchitis, Urinary tract infection Patient Disposition: Admitted As Inpatient
[2023-03-18] MEDS: 0.9 % Sodium Chloride 1,000 ML 999 ML IV (00:46)
[2023-03-18] MEDS: Ketorolac Tromethamine 30 MG/ML VIAL IVPUSH (00:46)
[2023-03-18] MEDS: Piperacillin Sodium/Tazobactam 3.375 GM in 0.9 % Sodium Chloride 50 ML IV (00:47)
[2023-03-18 00:55] LABS: Lactic Acid 1.1 mmol/L (0.5-2.0)
--- NOTE | 2023-03-18 01:15 | P.HPHOSP_ITS ---
History of Present Illness Date of Service: 03/18/23 Chief Complaint: Fever This is a 67-year-old male with pertinent history of BPH, chronic Henry catheter due to urine retention, peripheral neuropathy, mood disorder who presents to the emergency department for evaluation of fever and testicular pain. Patient st ates he started having testicular pain that has been progressive over the last 24 hours. It is associated with redness and tenderness. Patient was seen earlier in the day in the ER and sent home on p.o. antibiotics. Patient states his pain was not controlled and he started having fever which prompted repeat ER visit. Does have associated fevers and chills. No chest discomfort, palpitations, shortness of breath, changes in bowel habits. Also has diffused lower abdominal pain In the emergency department, urology was consulted who requested admission for possible epididymitis. Review of Systems Constitutional: Constitutional: Reports chills and Reports fever(s) Cardiovascular: Cardiovascular: Reports no additional cardiovascular complaints Respiratory: Respiratory: Reports no additional respiratory complaints Gastrointestinal: Gastrointestinal: Reports no additional gastrointestinal complaints Genitourinary: Genitourinary: Reports scrotal swelling and Reports testicular pain PMFSH Medical History Mood disorder Neuropathy, lower extremity Urinary retention Pertinent family history: No family history of early CAD Social History Alcohol intake: current Alcohol intake frequency: holidays/special occasions only Substance Use Type: Marijuana Advance Directives: No Advance Directives Information Provided: Yes Meds Allergies Allergy/AdvReac Type Severity Reaction Status Date / Time codeine AdvReac Intermediate Vomiting Verified 03/17/23 23:44 Active Medications: Current Medications Acetaminophen (Acetaminophen 325 Mg Tablet) 650 mg PO Q6H PRN PRN Reason: Pain, Mild (Pain Scale 1-3) Enoxaparin Sodium (Enoxaparin Sodium 40 Mg/0.4 Ml Syringe) 40 mg SUBCUT Q24H PEDRITO Sodium Chloride (Ns) 1,000 mls @ 999 mls/hr IV .Q1H1M ONE Stop: 03/18/23 01:21 Last Admin: 03/18/23 00:46 Dose: 999 mls/hr Melatonin (Melatonin 3 Mg Tablet) 6 mg PO BEDTIME PRN PRN Reason: Insomnia Ondansetron HCl (Ondansetron Hcl 4 Mg/2 Ml Vial) 4 mg IVPUSH Q8H PRN PRN Reason: Nausea and Vomiting Sodium Chloride (0.9 % Sodium Chloride Flush 3 Ml Syringe) [facility] Medications Medication Instructions Recorded Confirmed Last Taken Type duloxetine 20 mg capsule,delayed 40 mg PO DAILY 02/08/23 02/08/23 Unknown History release zolpidem 10 mg tablet 10 mg PO DAILY PRN 02/08/23 02/08/23 Unknown History Physical Exam Vital Signs and Narrative: Vital Signs: Last Vital Signs Temp 99.6 F 03/18/23 00:47 Pulse 102 H 03/17/23 23:39 Resp 18 03/17/23 23:39 BP 104/60 03/17/23 23:39 Pulse Ox 99 03/17/23 23:39 O2 Del Method Room Air 03/17/23 23:39 BMI result Body Mass Index 25.4 Middle-aged male lying in bed in mild distress Neck supple, no JVD Tachycardic with regular, S1-S2 heard Regular breath sounds bilaterally, no wheezing or crackles appreciated Abdomen with generalized tenderness, no guarding, no rigidity, no rebound tenderness Testicular swelling with tenderness and erythema present Patient is awake, alert and oriented to self, place, time and person ; no focal motor deficit Psych: Normal mood No pedal edema Results Labs Labs: Laboratory Results - last 24 hr 03/18/23 00:38 Lactic Acid 1.1 Assessment and Plan (1) Sepsis: Status: Acute Plan This is a 67-year-old male with pertinent history of BPH, chronic Henry catheter due to urine retention, peripheral neuropathy, mood disorder who presents to the emergency department for evaluation of fever and testicular pain. #. Sepsis due to possible epididymo-orchitis: Will admit patient and initiate empiric IV antibiotics. Resuscitated with IV crystalloids. Urology was consulted from the ER, appreciate assistance. Blood cultures and lactic acid obtained. Patient at no risk of STI #. Peripheral neuropathy: Continue Cymbalta #. Chronic urinary retention/BPH. Continue bethanechol and Flomax. On chronic Henry #. Mood disorder. Continue home mood stabilizers Med rec pending DVT prophylaxis: Lovenox Full code Admit as inpatient and will require two night minimum hospital stay for IV antibiotics Time Spent With Patient Time: Total time managing care of this patient today ____ minutes. Quality Stroke Does the patient have a stroke diagnosis?: No VTE Prior VTE?: No VTE Risk Level:: Medical - moderate - high VTE Device Contraindication: Treatment Not Indicated VTE Drug Contraindication: N/A - Med Ordered
[2023-03-18] MEDS: cefTRIAXone sodium 1 GM in 0.9 % Sodium Chloride 50 ML IV ×2 (02:10→20:53)
[2023-03-18] MEDS: Zolpidem Tartrate 5 MG TABLET PO ×2 (02:10→20:53)
[2023-03-18] MEDS: Morphine Sulfate 2 MG/ML CARTRIDGE IVPUSH (02:25)
--- NOTE | 2023-03-18 02:31 | PC.NURSE ---
pt reassessed, reported increased lower abd pain, medicated with 2 mg of morphine ivp
[2023-03-18 05:16] LABS: Basophils Absolute Auto 0.1 X10*3/uL (0.0-0.2); Basophils Percent Auto 0.3 % (0-2); Eosinophils Absolute Auto 0.1 X10*3/uL (0.0-0.4); Eosinophils Percent Auto 0.4 % (0-4); Hematocrit 36.9 % (42.0-52.0); Hemoglobin 12.7 g/dl (14.0-18.0); Imm Gran Abs Auto 0.31 X10*3/uL (0.00-0.03); Imm Gran Pct Auto 1.2 % (0.0-0.4); Lymphocytes Absolute Auto 0.6 X10*3/uL (1.2-4.9); Lymphocytes Percent Auto 2.3 % (20-40); MANUAL DIFF FLAG SCAN; Mean Corpuscular HGB Conc 34.4 g/dl (31.0-36.0); Mean Corpuscular Hemoglobin 31.8 pg (27.0-33.0); Mean Corpuscular Volume 92.5 fL (80.0-98.0); Mean Platelet Volume 9.4 fL (9.4-12.4); Monocytes Absolute Auto 1.5 X10*3/uL (0.1-1.2); Monocytes Percent Auto 5.9 % (2-11); Neutrophils Percent Auto 89.9 % (45-73); Platelet Count 266 X10*3/uL (160-400); Red Blood Count 3.99 X10*6/uL (4.60-5.80); Red Cell Distribution Width 12.7 % (11.0-16.0); SCAN SMEAR FLAG 1; White Blood Count 25.6 X10*3/uL (4.8-10.8)
[2023-03-18 05:33] LABS: Anion Gap 12 (12-20); Blood Urea Nitrogen 10 mg/dL (9-16); Carbon Dioxide 21 mmol/L (22-29); Chloride 106 mmol/L (96-108); Creatinine Clr Calc Pharmacy 65.9; Estimated Glomerular Filt Rate > 60; Glucose Random 127 mg/dL (60-115); Potassium 3.4 mmol/L (3.3-5.1); Sodium 136 mmol/L (135-145)
[2023-03-18] MEDS: Morphine Sulfate 4 MG/ML CARTRIDGE IVPUSH (05:35)
[2023-03-18 05:37] LABS: SLIDE REVIEW VERIFIED
--- NOTE | 2023-03-18 07:39 | PHA.MEDREC ---
Pharmacy Consult ? Medication Reconciliation Pharmacy has completed the medication reconciliation. pt no longer on cymbalta or pristiq [place]
--- NOTE | 2023-03-18 09:45 | PC.NURSE ---
pt refusing bethanechol. temp 103.3F; reports nausea. pt also reporting 5/[address] Nichols notified.
[2023-03-18] MEDS: ondansetron HCL 4 MG/2 ML VIAL IVPUSH (09:54)
[2023-03-18] MEDS: Enoxaparin Sodium 40 MG/0.4 ML SYRINGE SUBCUT (09:54)
[2023-03-18] MEDS: Ibuprofen 600 MG TABLET PO (09:54)
[2023-03-18] MEDS: 0.9 % Sodium Chloride Flush 3 ML SYRINGE IVFLUSH (09:55)
[2023-03-18] MEDS: Tamsulosin HCL 0.4 MG CAPSULE 0.8 MG PO (09:55)
[2023-03-18] MEDS: Acetaminophen 325 MG TABLET 650 MG PO (11:34)
--- NOTE | 2023-03-18 12:06 | PM.UROCN ---
History of Present Illness Consult details Consult date: 03/18/23 Narrative: Orchitis Hydrocele, septated/infected UTI Urinary Retention BPH Review of Systems Review of Systems: 10 point ROS negative other than stated in HPI [facility] Past Medical History Medical History Mood disorder Neuropathy, lower extremity Urinary retention Social History Social History Household Members: Significant Other Housing: House Do you presently have visiting nurse or other home services: No Alcohol intake: never Patient Tobacco Use Status: Former Tobacco user Years Smoked: 10 Smoked in Last 30 Days: No Use of substances other than those prescribed or required for medical reasons: No Substance Use Type: Marijuana Currently Displaying Signs/Symptoms of Drug Intoxication Withdrawal: No Have you been hit, kicked, punched, or otherwise hurt by someone within the past year? If so, by whom?: No Do you feel safe in your current relationship?: Yes Is there a partner from a previous relationship who is making you feel unsafe now?: No Are you made to feel afraid or neglected: No Advance Directives: No Advance Directives Information Provided: Yes Do you have thoughts of harming others: None Do you have a plan to hurt others: No Plan Recently lost weight without trying: Yes How much weight loss: 14-23 pounds Eating poorly because of decreased appetite: Yes Nutrition screen score: 5 Nutrition Risks: No Nutritional Risk service: No Meds Allergies Allergy/AdvReac Type Severity Reaction Status Date / Time codeine AdvReac Intermediate Vomiting Verified 03/17/23 23:44 Active Medications: Current Medications Acetaminophen (Acetaminophen 325 Mg Tablet) 650 mg PO Q6H PRN PRN Reason: Pain, Mild (Pain Scale 1-3) Last Admin: 03/18/23 11:34 Dose: 650 mg Bethanechol Chloride (Bethanechol Chloride 25 Mg Tablet) 25 mg PO BID [facility] Last Admin: 03/18/23 09:48 Dose: Not Given Enoxaparin Sodium (Enoxaparin Sodium 40 Mg/0.4 Ml Syringe) 40 mg SUBCUT Q24H [facility] Last Admin: 03/18/23 09:54 Dose: 40 mg Ceftriaxone Sodium 1 gm/ (Sodium Chloride) 50 mls @ 100 mls/hr IV 2200 [facility] Last Infusion: 03/18/23 02:42 Dose: Infused Ibuprofen (Ibuprofen 600 Mg Tablet) 600 mg PO Q8H PRN PRN Reason: Fever >101 Last Admin: 03/18/23 09:54 Dose: 600 mg Melatonin (Melatonin 3 Mg Tablet) 6 mg PO BEDTIME PRN PRN Reason: Insomnia Morphine Sulfate (Morphine Sulfate 2 Mg/Ml Cartridge) 2 mg IVPUSH Q6H PRN; Protocol PRN Reason: Pain, Severe (Pain Scale 7-10) Ondansetron HCl (Ondansetron Hcl 4 Mg/2 Ml Vial) 4 mg IVPUSH Q8H PRN PRN Reason: Nausea and Vomiting Last Admin: 03/18/23 09:54 Dose: 4 mg Pharmacy Consult (Consult Rx Perform Med Rec) 1 each MISCELLANE ONCE PRN PRN Reason: Consult order Sodium Chloride (0.9 % Sodium Chloride Flush 3 Ml Syringe) 3 ml IVFLUSH QSHIFT [facility] Last Admin: 03/18/23 09:55 Dose: 3 ml Tamsulosin HCl (Tamsulosin Hcl 0.4 Mg Capsule) 0.8 mg PO DAILY [facility] Last Admin: 03/18/23 09:55 Dose: 0.8 mg Zolpidem Tartrate (Zolpidem Tartrate 5 Mg Tablet) 5 mg PO DAILY PRN PRN Reason: Sleep Home Medications Medication Instructions Recorded Confirmed Last Taken Type zolpidem 10 mg tablet 10 mg PO DAILY PRN Sleep 02/08/23 03/18/23 03/16/23 22:00 History omeprazole 40 mg capsule,delayed 40 mg PO DAILY 03/18/23 03/18/23 Unknown History release Physical Exam Vital Signs: Vital Signs: Last Vital Signs Temp 103.2 F H 03/18/23 11:35 Pulse 112 H 03/18/23 11:35 Resp 16 03/18/23 11:35 BP 106/63 03/18/23 11:35 Pulse Ox 95 03/18/23 11:35 O2 Del Method Room Air 03/18/23 11:35 BMI result Body Mass Index 25.4 Results Labs 03/18/23 04:35 03/18/23 04:35 Labs: Abnormal lab results 03/18/23 03/18/23 Range/Units 04:35 04:35 WBC 25.6 H (4.8-10.8) X10*3/uL RBC 3.99 L (4.60-5.80) X10*6/uL Hgb 12.7 L (14.0-18.0) g/dl Hct 36.9 L (42.0-52.0) % Immature Gran % (Auto) 1.2 H (0.0-0.4) % Neut % (Auto) 89.9 H (45-73) % Lymph % (Auto) 2.3 L (20-40) % Lymph # (Auto) 0.6 L (1.2-4.9) X10*3/uL [place] # (Auto) 1.5 H (0.1-1.2) X10*3/uL Abs Immat Gran (auto) 0.31 H (0.00-0.03) X10*3/uL Absolute Neuts (auto) 23.0 H (2.0-8.3) x10*3/uL Carbon Dioxide 21 L (22-29) mmol/L Random Glucose 127 H (60-115) mg/dL Short CBC 03/18/23 Range/Units 04:35 WBC 25.6 H (4.8-10.8) X10*3/uL Hgb 12.7 L (14.0-18.0) g/dl Hct 36.9 L (42.0-52.0) % Plt Count 266 (160-400) X10*3/uL BMP 03/18/23 04:35 Sodium 136 Potassium 3.4 Chloride 106 Carbon Dioxide 21 L BUN 10 Creatinine 1.08 Calcium 9.0 D All other labs normal. Imaging Additional studies: Date of Service: 03/17/23 EXAMINATION: US SCROTUM CLINICAL INFORMATION: Left pain and swelling.. COMPARISON: None available. TECHNIQUE: A sonogram of the scrotum was performed assessing mckee-scale appearance and color Doppler flow. Spectral Doppler analysis of the arterial and venous flow were performed in the testes bilaterally. FINDINGS: RIGHT: Right testicle measures 5.1 x 2.9 x 3.9 cm, volume 29.7 mL. No focal testicular parenchymal lesions are visualized. Spectral Doppler analysis of the arterial and venous flow is increased in the right testis. Incidental finding of a right appendix testes along the superior pole is noted. Right epididymal head is normal in size. There anechoic cysts seen in the body of the right epididymis measuring 0.5 x 0.3 x 0.4 cm. No right hydrocele or varicocele is seen. Right epididymal Doppler flow is normal. LEFT: Left testicle measures 5.4 x 3.8 x 3.5 cm, volume 37.6 mL. No focal testicular parenchymal lesions are visualized. Spectral Doppler analysis of the arterial and venous flow is increased in the left testis. Left epididymal head is normal in size. There is a complex left hydrocele with septations. No varicocele is seen. Left epididymal Doppler flow is normal. IMPRESSION: 1.? Complex left hydrocele with septations. 2.? Small right epididymal body cyst. 3.? Normal testes with increased vascularity. Incidental finding of right appendix testes. Date of Service: 03/15/23 Procedure(s): CT abdomen pelvis wo/w IV con Accession Number(s): [id number] cc: Nas Quintero MD~ EXAMINATION: CT ABDOMEN AND PELVIS WITHOUT AND WITH CONTRAST? CLINICAL INFORMATION: Urinary retention? COMPARISON: None available. TECHNIQUE: Multidetector volumetric imaging was performed of the abdomen and pelvis before and after the IV administration of 85 mL of Omnipaque 350 intravenous contrast. Sagittal and coronal reformatted images were obtained on the technologist's workstation. This CT examination was performed using dose optimization techniques as appropriate, variously including the following: *Automated exposure control *Adjustment of mA and/or kV according to patient size (this includes techniques or standardized protocols for targeted exams where dose is matched to indication/reason for exam; i.e. extremities or head) *Use of iterative reconstruction technique DLP: 769 mGy-cm FINDINGS: LUNG BASES: The visualized lung bases are unremarkable.? LIVER, GALLBLADDER, AND BILIARY TREE: The liver is normal in size, shape, and attenuation. No focal hepatic lesion or biliary ductal dilatation is present. The gallbladder is unremarkable with no evidence of radiopaque gallstones, gallbladder wall thickening, or obvious pericholecystic inflammatory changes.? PANCREAS: Unremarkable? SPLEEN: Unremarkable? ADRENAL GLANDS: Fullness of the left adrenal gland. No definite nodule seen. The right adrenal gland is normal. KIDNEYS AND URETERS: There is a 4 mm stone in the lower pole of the left kidney. There are bilateral peripelvic and left renal cortical cysts. No imaging follow-up recommended. No hydronephrosis. There is some distortion of the collecting systems from the cyst. Collecting systems are otherwise normal. There is good opacification of the right ureter with excreted contrast which is normal-appearing. There is not optimal contrast opacification of the left mid and distal ureter. The left ureter does not appear dilated. BLADDER: There is diffuse bladder wall thickening. There is some mild stranding of the perivesicular fat. There is a small amount of air in the bladder. Prostate gland is enlarged and heterogeneous appearing and protrudes into the base of the bladder. No definite bladder mass is appreciated.? GASTROINTESTINAL TRACT: There is diverticulosis of the colon. No evidence of diverticulitis. Small and large bowel is otherwise unremarkable. The appendix is unremarkable. There may be fold thickening of the stomach.? ABDOMINAL WALL: Small umbilical hernia containing fat. Bilateral inguinal hernias containing fat.? LYMPH NODES: There is an enlarged right pelvic sidewall lymph node measuring 1 x 1.5 cm axial image 70 series 13. There is a smaller right internal iliac pelvic lymph node measuring 5 mm axial image 75 series 13. There is a small right common iliac lymph node measuring 8 mm in short axis axial image 61 series 13. VASCULAR: Unremarkable PELVIC VISCERA: The prostate gland is enlarged and heterogeneous appearing and protrudes into the base of the bladder. The prostate gland measures 6 x 6 x 6 cm in dimension and is lobulated in contour. The seminal vesicles appear enlarged. There are cystic changes.? OSSEOUS STRUCTURES: Small sclerotic lesion in the right iliac bone, right posterior 11th rib and L3 vertebral body. Degenerative changes of the spine. IMPRESSION: Enlarged very heterogeneous prostate gland that protrudes into the base of the bladder. There is some stranding of the perivesicular fat and mild diffuse bladder wall thickening. No bladder mass is appreciated. Small amount of air in the bladder. Clinically correlate i.e. has there been recent bladder catheterization. Differential would include infection and less likely fistula. Both seminal vesicles are enlarged with cystic changes. Right pelvic retroperitoneal lymphadenopathy. There is a slightly enlarged right iliac bifurcation or pelvic sidewall lymph node. Other pelvic lymph nodes are normal in size. Distorted bilateral renal collecting systems from bilateral renal peripelvic cysts. Collecting systems are otherwise normal. Normal-appearing right ureter. Left ureter not optimally opacified with excreted contrast. Fullness of the left adrenal gland. No definite adrenal mass. Mild diverticulosis of the colon. Question prominent folds or thickening in the proximal stomach.? Assessment and Plan (1) Acute epididymo-orchitis: Status: Acute (2) Urinary tract infection: Status: Acute Urine Culture Preliminary 03/18/23-1244 Organism 1 Enterococcus/Streptococcus sp Quant > 100,000 cfu/mL (3) Urinary retention: Status: Acute Plan Cont IV Rocephin Sensitivities pending on urine c/s Time Spent With Patient Time: Total time managing care of this patient today ____ minutes. Procedures Date of Service Date of Service: 03/19/23
--- NOTE | 2023-03-18 12:10 | MHC.CM.PN ---
This news writer met with patient for CM assessment. From home, no services, Currently employed. HCP copy @ home. PCP verified. Independent. DCP- home no services, significant other to transport.
--- NOTE | 2023-03-18 14:50 | PC.NURSE ---
report given to [facility] nurse dyan
[2023-03-18] MEDS: Bethanechol Chloride 25 MG TABLET PO (20:53)
[2023-03-19 04:00] VITALS: BP 108/58; PULSE 92; RESP 15; TEMP 37.4; O2SAT 98
--- NOTE | 2023-03-19 04:00 | ECG_ITS ---
Test Reason : CHEST PAIN Blood Pressure : / mmHG Vent. Rate : 079 BPM Atrial Rate : 079 BPM P-R Int : 128 ms QRS Dur : 094 ms QT Int : 360 ms P-R-T Axes : 057 024 047 degrees QTc Int : 412 ms Normal sinus rhythm ST elevation consider inferolateral injury or acute infarct ACUTE ID / STEMI Abnormal ECG When compared with ECG of 07-JUN-2022 10:32, ST elevation now present in Inferior leads ST elevation now present in Lateral leads ST elevation consider inferolateral injury or acute infarct Referred By: Clif Mena Electronically Signed By:JEANNIE THOMAS
--- NOTE | 2023-03-19 04:05 | ECG_ITS ---
Test Reason : chest pain Blood Pressure : / mmHG Vent. Rate : 082 BPM Atrial Rate : 082 BPM P-R Int : 134 ms QRS Dur : 094 ms QT Int : 366 ms P-R-T Axes : 049 014 038 degrees QTc Int : 427 ms Normal sinus rhythm Possible Left atrial enlargement ST elevation consider inferolateral injury or acute infarct ACUTE PR / STEMI Abnormal ECG When compared with ECG of 19-MAR-2023 04:13, ST less elevated in Lateral leads Referred By: Clif Mena Electronically Signed By:JEANNIE THOMAS
--- NOTE | 2023-03-19 04:10 | ECG_ITS ---
Test Reason : chest pain Blood Pressure : / mmHG Vent. Rate : 084 BPM Atrial Rate : 084 BPM P-R Int : 132 ms QRS Dur : 092 ms QT Int : 364 ms P-R-T Axes : 054 027 049 degrees QTc Int : 430 ms Normal sinus rhythm ST elevation consider inferolateral injury or acute infarct ACUTE [place] / STEMI Abnormal ECG When compared with ECG of 19-MAR-2023 04:12, No significant change was found Referred By: Clif Mena Electronically Signed By:JEANNIE THOMAS
[2023-03-19 04:43] VITALS: BP 92/58; PULSE 66; RESP 18; TEMP 36.2; O2SAT 97
--- NOTE | 2023-03-19 04:43 | P.EN_ITS ---
Event Note Date of Service: 03/19/23 Event Note: DR Fagan Pt woke up wioth right sided cp, dull pressure like radiating to back constant, not worsened with deep inspiration. Resolved after receiving aspirin 325 as well as morphine 2 mg. Patient hemodynamically stable otherwise. EKG showing inferior lateral ST elevations with anterior ST depressions and T-wave inversions. Spoke to her stage setting painter apprentice, recommended transferring to [facility]. Patient started on heparin, and will be transferred to [facility] Time Spent With Patient Time: Total time managing care of this patient today ____ minutes.
[2023-03-19] MEDS: Aspirin Enteric Coated 325 MG TABLET.DR PO (04:48)
[2023-03-19] MEDS: Morphine Sulfate 2 MG/ML CARTRIDGE IVPUSH (04:52)
[2023-03-19 04:53] LABS: Hematocrit 36.5 % (42.0-52.0); Hemoglobin 12.7 g/dl (14.0-18.0); Mean Corpuscular HGB Conc 34.8 g/dl (31.0-36.0); Mean Corpuscular Hemoglobin 31.8 pg (27.0-33.0); Mean Corpuscular Volume 91.5 fL (80.0-98.0); Mean Platelet Volume 9.3 fL (9.4-12.4); Platelet Count 253 X10*3/uL (160-400); Red Blood Count 3.99 X10*6/uL (4.60-5.80); Red Cell Distribution Width 12.9 % (11.0-16.0); White Blood Count 28.6 X10*3/uL (4.8-10.8)
--- NOTE | 2023-03-19 05:04 | PM.DS ---
DS: Providers Provider Date of Service: 03/19/23 Date of admission: 03/18/23 01:13 Primary care physician: Javy Varma MD Consults: 03/18/23 01:47 Consult to Urology Routine Consulting Provider: Nas Quintero Reason for consultation: ?epididymitis DS: Transfer Hospital Acceptance Reason for Transfer: STEMI DS: Diagnosis Discharge Diagnosis (1) Acute epididymo-orchitis: Status: Acute (2) Urinary tract infection: Status: Acute (3) Urinary retention: Status: Acute DS: Summary Hospital Course Hospital Course: From admission H&P: This is a 67-year-old male with pertinent history of BPH, chronic Henry catheter due to urine retention, peripheral neuropathy, mood disorder who presents to the emergency department for evaluation of fever and testicular pain.? Patient states he started having testicular pain that has been progressive over the last 24 hours.? It is associated with redness and tenderness.? Patient was seen earlier in the day in the ER and sent home on p.o. antibiotics.? Patient states his pain was not controlled and he started having fever which prompted repeat ER visit.? Does have associated fevers and chills.? No chest discomfort, palpitations, shortness of breath, changes in bowel habits.? Also has diffused lower abdominal pain In the emergency department, urology was consulted who requested admission for possible epididymitis. Patient was admitted for sepsis secondary to epididymo-orchitis. Patient was started on IV antibiotics. Around 04:30 this morning patient developed right-sided dull constant pain radiating to the back not worsened with deep inspiration. EKG showed STEMI with ST elevations in the inferior lateral leads, discussed with her oxygen equipment preparer, recommended transfer to [facility] for further management. Discussed with the oxygen equipment preparer at [facility], patient given 325 of aspirin, 2 mg of morphine, resolved chest pain. Started on heparin drip, troponin currently pending. Patient will be admitted to [facility] cardiac CCU further management Time Spent with Patient Time attestation: Total time managing care of this patient today ____ minutes. Discharge coordination time: Greater than 30 minutes Quality: Safe Use of Opioids Does Pt have an Active Cancer Diagnosis on the Problem List?: No Quality: Stroke Does the patient have a stroke diagnosis?: No Physical Exam Vital Signs: Vital Signs: Last Vital Signs Temp 97.1 F 03/19/23 04:43 Pulse 66 03/19/23 04:43 Resp 18 03/19/23 04:43 BP 92/58 L 03/19/23 04:43 Pulse Ox 97 03/19/23 04:43 O2 Del Method Room Air 03/19/23 04:43 BMI result Body Mass Index 25.3 DS: Data Data Completed and Pending Labs on day of discharge: Laboratory Results - last 24 hr 03/18/23 03/18/23 03/19/23 04:35 04:35 04:45 WBC 25.6 H 28.6 H RBC 3.99 L 3.99 L Hgb 12.7 L 12.7 L Hct 36.9 L 36.5 L MCV 92.5 91.5 MCH 31.8 31.8 MCHC 34.4 34.8 RDW 12.7 12.9 Plt Count 266 253 MPV 9.4 9.3 L Immature Gran % (Auto) 1.2 H Neut % (Auto) 89.9 H Lymph % (Auto) 2.3 L [place] % (Auto) 5.9 Eos % (Auto) 0.4 Baso % (Auto) 0.3 Lymph # (Auto) 0.6 L [place] # (Auto) 1.5 H Eos # (Auto) 0.1 Baso # (Auto) 0.1 Abs Immat Gran (auto) 0.31 H Absolute Neuts (auto) 23.0 H Absolute Nucleated RBC 0.000 0.000 Nucleated RBC % (auto) 0.0 0.0 Smear Tech's Comments VERIFIED Sodium 136 Potassium 3.4 Chloride 106 Carbon Dioxide 21 L Anion Gap 12 BUN 10 Creatinine 1.08 Estim Creat Clear Calc 65.9 Estimated GFR > 60 Random Glucose 127 H Calcium 9.0 D Preliminary micro results at discharge 03/18/23 00:38 Blood Culture - Preliminary Blood - Venous No growth after 24 hours. 03/18/23 00:38 Blood Culture - Preliminary Blood - Venous No growth after 24 hours. Discharge Plan Discharge Anticipated Discharge Date/Time: 03/19/23 05:08 Patient Disposition: Xfer Acute Care Hospital Discharge Diagnosis: STEMI, epididymo-orchitis Referrals: Javy Varma MD [Primary Care Provider] - 1 Week Discharge Medications: New acetaminophen 325 mg Tablet 650 mg PO Q6H PRN (Reason: Pain, Mild (Pain Scale 1-3)) Qty: 30 0RF melatonin 3 mg Tablet 6 mg PO BEDTIME PRN (Reason: Insomnia) Qty: 30 0RF ceftriaxone 1 gram Recon Soln 1 g IV 2200 Qty: 10 0RF heparin(porcine) in 0.45% NaCl 25,000 unit/250 mL Parenteral Solution 25,000 unit continuous IV infusion .Q0M Qty: 6000 0RF morphine 2 mg/mL Syringe 2 mg IVPUSH Q6H PRN (Reason: Pain, Severe (Pain Scale 7-10)) Qty: 10 0RF Protocol: Hold for RR < HOLD and contact provider for RR < (bpm): 12 Rx Instructions: Partial Fill upon patient request. Continued omeprazole 40 mg capsule,delayed release(DR/EC) 40 mg PO DAILY bethanechol chloride 25 mg tablet 25 mg PO BID 30 Days Qty: 60 1RF Rx Instructions: haven't taken in 2 months tamsulosin 0.4 mg capsule 0.8 mg PO DAILY 30 Days Qty: 60 1RF zolpidem 10 mg tablet 10 mg PO DAILY PRN (Reason: Sleep) Discharge Orders: Discharge Order (Routine); Ordered 03/19/23 Ordered By: Clif Mena Activity on Discharge: As tolerated Stand Alone Forms: Patient Portal Discharge page Care Plan Goals: STEMI Health Concerns: STEMI Plan of Treatment: See above Assessment: See above
[2023-03-19 05:13] VITALS: BP 98/56; PULSE 85; RESP 16; TEMP 37.1; O2SAT 98
[2023-03-19 05:33] LABS: INTERNATIONAL NORM RATIO 1.2 (0.9-1.1); Prothrombin Time 14.1 SEC (11.1-13.3)
[2023-03-19 05:36] LABS: PTT Heparin Drip 30.4 SEC (53-77.9)
[2023-03-19] MEDS: Heparin Sodium,Porcine 5,000 UNIT/ML VIAL 6000 UNIT IVPUSH (05:45)
[2023-03-19] MEDS: Heparin Sodium,Porcine/1/2NS 25,000 UNIT/250 ML IV.SOLN 10.58 UNIT IVCONT (05:45)
--- NOTE | 2023-03-19 06:48 | PC.NURSE ---
Assumed care of patient at 18:45. Patient reported 5/10 right sided dull chest pain. MD notified, EKG ordered. EKG showed normal sinus rhythm with ST elevation. MD notifed and a repeat EKG was done and showed normal sinus rhythm. MD ordered to administer Morphine 2mg IVpush, Asprin PO once, troponins to be drawn and to start heparin drip. Morphine administered with great effect with patient reporting 0/10 chest pain. Troponin obtained reading [id number] and MD notified with no further orders placed. Heparin drip started. Gave report to Armando RN. Hand off report given to EMS for transport.
--- NOTE | 2023-03-19 07:43 | MHC.CM.PN ---
Patient will be dc/transferred to [facility] today.
== END 2023-03-19 07:00 | disposition short-term general hospital (02) | DRG 720 ==
LOC: HO.ED 03-18 01:17 → HO.EDOVER 03-18 02:19 → HO.IMC 03-18 13:29
PROVIDERS: Internal Medicine; Admitting Provider Student in an Organized Health Care Education/Training Program; Emergency Provider Internal Medicine; PCP Internal Medicine; Visit Provider Student in an Organized Health Care Education/Training Program
DX: A41.9 Sepsis, unspecified organism (principal); I21.3 ST elevation (STEMI) myocardial infarction of unspecified site; G62.9 Polyneuropathy, unspecified; N39.0 Urinary tract infection, site not specified; F39 Unspecified mood [affective] disorder; N45.3 Epididymo-orchitis; N40.1 Benign prostatic hyperplasia with lower urinary tract symptoms; R33.8 Other retention of urine; Z79.899 Other long term (current) drug therapy
CPT/HCPCS: 36415; 80048; 83605; 84484; 85025; 85027; 85610; 85730; 87040; 93005; 99285; J0696; J1643; J1650; J1885; J2270; J2405; J2543

== ENCOUNTER → 2023-03-17 23:53 | Outpatient (BNV) | payer BC, SELFPAY | PROVIDERS: Emergency Provider Internal Medicine; PCP Internal Medicine; Visit Provider Student in an Organized Health Care Education/Training Program | DX: N45.3 Epididymo-orchitis (principal); N39.0 Urinary tract infection, site not specified; R33.9 Retention of urine, unspecified | CPT/HCPCS: 99222; 99239; 99499 ==

== ENCOUNTER 2023-03-22 11:25 | Outpatient (AMB) | payer BC, SELFPAY ==
--- NOTE | 2023-03-22 05:38 | A.OFFVIS_ITS ---
Intake Intake Visit Reasons: 1m/CT/cysto Allergies codeine Adverse Reaction (Intermediate, Verified 03/17/23 23:44) Vomiting HPI HPI Comments History of Present Illness Details Rosalio is a 67-year-old male who presents today to the office for a follow-up. 03/22/2023? He was last seen by me on 02/08/2023 for urinary retention. The patient was advised to continue tamsulosin 0.4 mg QD. CTAP with contrast was ordered, and cysctoscopy discussed to be scheduled at that time. I reviewed the US scrotum results from 03/17/2023 revealed complex left hyrocele with septations, small right epididymal body cyst, and normal testes with increased vascularity. Incidental finding of right appendix testes. I reviewed the CT of the abdomen/pelvis results from 03/15/2023 revealed enlarged very heterogeneous prostate gland that protrudes into the base of the bladder. There is some stranding of the perivesicular fat and mild diffuse bladder wall thickening. No bladder mass is appreciated. Small amount of air in the bladder. Clinically correlate i.e. has there been recent bladder catheterization. Differential would include infection and less likely fistula. Both seminal vesicles are enlarged with cystic changes. Right pelvic retroperitoneal lymphadenopathy. There is a slightly enlarged right iliac bifurcation or pelvic sidewall lymph node. Other pelvic lymph nodes are normal in size. Distorted bilateral renal collecting systems from bilateral renal peripelvic cysts. Collecting systems are otherwise normal. Normal-appearing right ureter. Left ureter not optimally opacified with excreted contrast. Fullness of the left adrenal gland. No definite adrenal mass. Mild diverticulosis of the colon. Question prominent folds or thickening invthe proximal stomach. Review of charts: Last visit: 02/08/23-- The patient presented to [facility] with his fiance. The patient visited the ER on 01/10/23 and Henry catheter was placed for urinary retention.? He presented to ED for lower abdominal pain radiating to the back.? The patient complained of decreased urine output and dysuria.? He was prescribed with Cipro 500 mg BIS for 7 days along with 14-days course of tamsulosin 0.4 mg QD. States visiting the PCP before the ER visit for urinary frequency after every 20 minutes with mild dysuria and was treated with antibiotics. 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 Mentions PSA testing with his PCP. He is currently on duloxetine 40 mg daily, omeprazole 40 mg daily, and zolpidem 10 mg daily. The patient states he has symptoms of neuropathy. Evaluation today: Bladder scan PVR1: 509 mL. The patient was unable to void. 16 Fr Henry catheter was placed. The patient was educated on how to plug the end of the catheter and drain it every 3 hours after which he can use the gravity bag at night time. It was discussed that with age the prostate gets larger, it can affect the flow of the urine and over time the bladder muscle may apply more pressure to start the urine stream and in doing so the bladder muscle can start to thicken and change which may cause bladder spasm with symptoms of urgency and frequency. Plan: CTAP with contrast was ordered. Continue tamsulosin 0.4 mg QD. Cysctoscopy discussed to be scheduled.? ? 03/22/2023: Evaluation today?UA? 03/22/2023: Plan: [facility] Medical History Mood disorder Neuropathy, lower extremity Urinary retention Social History Household Members: Significant Other Housing: House Do you presently have visiting nurse or other home services: No Alcohol intake: never Patient Tobacco Use Status: Former Tobacco user Years Smoked: 10 Smoked in Last 30 Days: No Use of substances other than those prescribed or required for medical reasons: No Substance Use Type: Marijuana Currently Displaying Signs/Symptoms of Drug Intoxication Withdrawal: No Have you been hit, kicked, punched, or otherwise hurt by someone within the past year? If so, by whom?: No Do you feel safe in your current relationship?: Yes Is there a partner from a previous relationship who is making you feel unsafe now?: No Are you made to feel afraid or neglected: No Advance Directives: No Advance Directives Information Provided: Yes Do you have thoughts of harming others: None Do you have a plan to hurt others: No Plan Recently lost weight without trying: Yes How much weight loss: 14-23 pounds Eating poorly because of decreased appetite: Yes Nutrition screen score: 5 Nutrition Risks: No Nutritional Risk service: No Results Reviewed Results Reviewed: Date of Service: 03/15/23 EXAMINATION: CT ABDOMEN AND PELVIS WITHOUT AND WITH CONTRAST? CLINICAL INFORMATION: Urinary retention? COMPARISON: None available. FINDINGS: LUNG BASES: The visualized lung bases are unremarkable.? LIVER, GALLBLADDER, AND BILIARY TREE: The liver is normal in size, shape, and attenuation. No focal hepatic lesion or biliary ductal dilatation is present. The gallbladder is unremarkable with no evidence of radiopaque gallstones, gallbladder wall thickening, or obvious pericholecystic inflammatory changes.? PANCREAS: Unremarkable? SPLEEN: Unremarkable? ADRENAL GLANDS: Fullness of the left adrenal gland. No definite nodule seen. The right adrenal gland is normal. KIDNEYS AND URETERS: There is a 4 mm stone in the lower pole of the left kidney. There are bilateral peripelvic and left renal cortical cysts. No imaging follow-up recommended. No hydronephrosis. There is some distortion of the collecting systems from the cyst. Collecting systems are otherwise normal. There is good opacification of the right ureter with excreted contrast which is normal-appearing. There is not optimal contrast opacification of the left mid and distal ureter. The left ureter does not appear dilated. BLADDER: There is diffuse bladder wall thickening. There is some mild stranding of the perivesicular fat. There is a small amount of air in the bladder. Prostate gland is enlarged and heterogeneous appearing and protrudes into the base of the bladder. No definite bladder mass is appreciated.? GASTROINTESTINAL TRACT: There is diverticulosis of the colon. No evidence of diverticulitis. Small and large bowel is otherwise unremarkable. The appendix is unremarkable. There may be fold thickening of the stomach.? ABDOMINAL WALL: Small umbilical hernia containing fat. Bilateral inguinal hernias containing fat.? LYMPH NODES: There is an enlarged right pelvic sidewall lymph node measuring 1 x 1.5 cm axial image 70 series 13. There is a smaller right internal iliac pelvic lymph node measuring 5 mm axial image 75 series 13. There is a small right common iliac lymph node measuring 8 mm in short axis axial image 61 series 13. VASCULAR: Unremarkable PELVIC VISCERA: The prostate gland is enlarged and heterogeneous appearing and protrudes into the base of the bladder. The prostate gland measures 6 x 6 x 6 cm in dimension and is lobulated in contour. The seminal vesicles appear enlarged. There are cystic changes.? OSSEOUS STRUCTURES: Small sclerotic lesion in the right iliac bone, right posterior 11th rib and L3 vertebral body. Degenerative changes of the spine. IMPRESSION: Enlarged very heterogeneous prostate gland that protrudes into the base of the bladder. There is some stranding of the perivesicular fat and mild diffuse bladder wall thickening. No bladder mass is appreciated. Small amount of air in the bladder. Clinically correlate i.e. has there been recent bladder catheterization. Differential would include infection and less likely fistula. Both seminal vesicles are enlarged with cystic changes. Right pelvic retroperitoneal lymphadenopathy. There is a slightly enlarged right iliac bifurcation or pelvic sidewall lymph node. Other pelvic lymph nodes are normal in size. Distorted bilateral renal collecting systems from bilateral renal peripelvic cysts. Collecting systems are otherwise normal. Normal-appearing right ureter. Left ureter not optimally opacified with excreted contrast. Fullness of the left adrenal gland. No definite adrenal mass. Mild diverticulosis of the colon. Question prominent folds or thickening in the proximal stomach. Date of Service: 03/17/23 EXAMINATION: US SCROTUM CLINICAL INFORMATION: Left pain and swelling.. COMPARISON: None available. FINDINGS: RIGHT: Right testicle measures 5.1 x 2.9 x 3.9 cm, volume 29.7 mL. No focal testicular parenchymal lesions are visualized. Spectral Doppler analysis of the arterial and venous flow is increased in the right testis. Incidental finding of a right appendix testes along the superior pole is noted. Right epididymal head is normal in size. There anechoic cysts seen in the body of the right epididymis measuring 0.5 x 0.3 x 0.4 cm. No right hydrocele or varicocele is seen. Right epididymal Doppler flow is normal. LEFT: Left testicle measures 5.4 x 3.8 x 3.5 cm, volume 37.6 mL. No focal testicular parenchymal lesions are visualized. Spectral Doppler analysis of the arterial and venous flow is increased in the left testis. Left epididymal head is normal in size. There is a complex left hydrocele with septations. No varicocele is seen. Left epididymal Doppler flow is normal. IMPRESSION: 1.? Complex left hydrocele with septations. 2.? Small right epididymal body cyst. 3.? Normal testes with increased vascularity. Incidental finding of right appendix testes. Assessment & Plan Assessment & Plan Patient Instructions: The patient had an opportunity to ask questions regarding treatment plan. All questions were answered. Imaging, Laboratory studies and physical exam results were discussed and reviewed in detail. No major barriers to understanding were identified. The patient expressed understanding and agreement with the above treatment plan.? ? ? The patient is aware they should contact our office by phone for worsening of their current condition or the appearance of new symptoms. Compliance is encouraged with any medications and followup testing that is ordered.? ? ? It is a privilege to be allowed the opportunity to participate in the urologic care of your patient. If you have any questions or concerns regarding treatment for the above conditions please do not hesitate to contact me. The office telephone contact is [phone].? ? ? This note is constructed in part using voice recognition software. While every effort has been made to ensure accuracy sandblast or shotblast equipment tender errors may have been included.? ? ? Yours sincerely,? ? ? Nas Quintero MD? ? Coding Diagnoses
--- NOTE | 2023-03-22 11:34 | MHC.OFFVIS ---
Intake Intake Visit Reasons: 1m/CT/cysto Intake Note: Patient presents today for a CYSTOSCOPY Procedure: Meds: Tamsulosin Allergies to Antibiotic: No Known Allergies Blood Thinner: None Urinalysis test clear for Cysto? Disposible Uro-G Cystoscope Cannula: Lot: [id number] Exp: 11/30/2024 Allergies codeine Adverse Reaction (Intermediate, Verified 03/17/23 23:44) Vomiting HPI HPI Comments History of Present Illness Details Rosalio is a 67-year-old male who presents today to the office for a follow-up. Currently on abx for orchitis. Hold on Cysto for today 03/22/2023? He was last seen by me on 02/08/2023 for urinary retention. The patient was advised to continue tamsulosin 0.4 mg QD. CTAP with contrast was ordered, and cysctoscopy discussed to be scheduled at that time. He had failed voiding trial, and he was admitted to hospital for orchitis and urinary tract infection sepsis. Patient states that he was diagnosed with pericarditis. He was transferred to [facility], and was evaluated by deburrer strip. He reports cloudy urine. He is on Levaquin for urinary tract infection sepsis. He states that his deburrer strip told him that his prostate is enlarged. I reviewed the US scrotum results from 03/17/2023 revealed complex left hyrocele with septations, small right epididymal body cyst, and normal testes with increased vascularity. Incidental finding of right appendix testes. I reviewed the CAT scan of the abdomen/pelvis results from 03/15/2023 revealed 4 mm stone in the lower pole of the left kidney and bilateral renal cyst. Heterogenous prostate gland protruding into the base of the bladder. Evaluation: 03/22/23-- scrotum left scrotal swelling and tenderness, stevens in place Review of charts: Last visit: 02/08/23-- The patient presented to [facility] with his fiance. The patient visited the ER on 01/10/23 and Stevens catheter was placed for urinary retention. He presented to ED for lower abdominal pain radiating to the back. The patient complained of decreased urine output and dysuria. He was prescribed with Cipro 500 mg BIS for 7 days along with 14-days course of tamsulosin 0.4 mg QD. States visiting the PCP before the ER visit for urinary frequency after every 20 minutes with mild dysuria and was treated with antibiotics. 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 Mentions PSA testing with his PCP. He is currently on duloxetine 40 mg daily, omeprazole 40 mg daily, and zolpidem 10 mg daily. The patient states he has symptoms of neuropathy. Evaluation today: Bladder scan PVR: 509 mL. The patient was unable to void. 16 Fr Stevens catheter was placed. The patient was educated on how to plug the end of the catheter and drain it every 3 hours after which he can use the gravity bag at night time. It was discussed that with age the prostate gets larger, it can affect the flow of the urine and over time the bladder muscle may apply more pressure to start the urine stream and in doing so the bladder muscle can start to thicken and change which may cause bladder spasm with symptoms of urgency and frequency. Plan:CTAP with contrast was ordered.Continue tamsulosin 0.4 mg QD.Cysctoscopy discussed to be scheduled. 03/22/2023: Plan: Cysto not performed today. Will increase Levaquin from 500 mg to 750 mg dialy. Proscar 5 mg daily was ordered. Advised the patient to discontinue Bethanechol which he did not start, and continue tamsulosin BID 0.4 mg daily. Will keep the Stevens catheter in, and follow up in one week. [facility] Medical History Mood disorder Neuropathy, lower extremity Urinary retention Family History (Updated 03/27/23 @ 12:01 by HENOK Holt) Father No problems noted. Mother No problems noted. Social History Household Members: Significant Other Housing: House Do you presently have visiting nurse or other home services: No Alcohol intake: never Patient Tobacco Use Status: Former Tobacco user Years Smoked: 10 Substance Use Type: Marijuana service: No Review of Systems Const All systems reviewed & are unremarkable except as noted in HPI and below Reports no additional complaints Eyes Reports no additional complaints ENT Reports no additional complaints Card Denies dyspnea Resp Denies cough and Denies dyspnea GI Reports no additional complaints Musc Reports no additional complaints Skin/Breast Denies rash and Denies unusual bruising Neuro Reports no additional complaints Psych Reports no additional complaints Endo Reports no additional complaints Maury/Lymph Reports no additional complaints Aller/Immun Reports no additional complaints Physical Exam Const General: healthy appearing, no acute distress and well developed Orientation/consciousness: patient oriented x3 HEENT Head: Yes normocephalic and Yes atraumatic Eyes Conjunctivae: conjunctivae normal Neck Neck: Yes normal visual inspection Chest Chest palpation & inspection: normal inspection of the chest Resp Effort & Inspection: normal respiratory effort Cardio Rate: regular rate GI Inspection: Yes normal to inspection Palpation (GI): Soft to palpation Other: scrotum left scrotal swelling and tenderness, stevens in place Neuro General: patient oriented x3 Extrem General: No pedal edema Psych Appearance: grossly normal Affect: normal affect Results AMB Urinalysis, Automated UA Leukoctes 70 Kristina/uL Last Edit by Dania Larson CMA on 03/22/23 11:41 1+ Dania Larson 03/22/23 11:41 UA Nitrite Negative Last Edit by Dania Larson CMA on 03/22/23 11:41 UA Urobilinogen 0.2 mg/dL Last Edit by Dania Larson CMA on 03/22/23 11:41 UA Protein 15 mg/dL Last Edit by Dania Larson CMA on 03/22/23 11:41 UA pH 6.0 Last Edit by Dania Larson CMA on 03/22/23 11:41 UA Blood 25 Raimundo/uL Last Edit by Dania Larson CMA on 03/22/23 11:41 1+ Dania Larson 03/22/23 11:41 UA Specific [place] 1.020 Last Edit by Dania Larson CMA on 03/22/23 11:41 UA Ketone Negative Last Edit by Dania Larson CMA on 03/22/23 11:41 UA Bilirubin 0 mg/dL Last Edit by Dania Larson CMA on 03/22/23 11:41 UA Glucose 0 mg/dL Last Edit by Dania Larson CMA on 03/22/23 11:41 Results Reviewed Results Reviewed: Laboratory Last Values Urine pH (Auto) 6.0 03/22/23 11:39 Specific [place] (Auto) 1.020 03/22/23 11:39 Urine Protein (Auto) 15 mg/dL 03/22/23 11:39 Glucose (UA)(Auto) 0 mg/dL 03/22/23 11:39 Urine Ketones (Auto) Negative 03/22/23 11:39 Urine Blood (Auto) 25 Raimundo/uL 03/22/23 11:39 Urine Nitrite (Auto) Negative 03/22/23 11:39 Urine Bilirubin (Auto) 0 mg/dL 03/22/23 11:39 Urine Urobilinogen (Auto) 0.2 mg/dL 03/22/23 11:39 Leukocyte Esterase (Auto) 70 Kristina/uL 03/22/23 11:39 Date of Service: 03/17/23 EXAMINATION: US SCROTUM CLINICAL INFORMATION: Left pain and swelling.. COMPARISON: None available.. FINDINGS: RIGHT: Right testicle measures 5.1 x 2.9 x 3.9 cm, volume 29.7 mL. No focal testicular parenchymal lesions are visualized. Spectral Doppler analysis of the arterial and venous flow is increased in the right testis. Incidental finding of a right appendix testes along the superior pole is noted. Right epididymal head is normal in size. There anechoic cysts seen in the body of the right epididymis measuring 0.5 x 0.3 x 0.4 cm. No right hydrocele or varicocele is seen. Right epididymal Doppler flow is normal. LEFT: Left testicle measures 5.4 x 3.8 x 3.5 cm, volume 37.6 mL. No focal testicular parenchymal lesions are visualized. Spectral Doppler analysis of the arterial and venous flow is increased in the left testis. Left epididymal head is normal in size. There is a complex left hydrocele with septations. No varicocele is seen. Left epididymal Doppler flow is normal. IMPRESSION: 1.? Complex left hydrocele with septations. 2.? Small right epididymal body cyst. 3.? Normal testes with increased vascularity. Incidental finding of right appendix testes. Date of Service: 03/15/23 EXAMINATION: CT ABDOMEN AND PELVIS WITHOUT AND WITH CONTRAST? CLINICAL INFORMATION: Urinary retention? COMPARISON: None available. FINDINGS: LUNG BASES: The visualized lung bases are unremarkable.? LIVER, GALLBLADDER, AND BILIARY TREE: The liver is normal in size, shape, and attenuation. No focal hepatic lesion or biliary ductal dilatation is present. The gallbladder is unremarkable with no evidence of radiopaque gallstones, gallbladder wall thickening, or obvious pericholecystic inflammatory changes.? PANCREAS: Unremarkable? SPLEEN: Unremarkable? ADRENAL GLANDS: Fullness of the left adrenal gland. No definite nodule seen. The right adrenal gland is normal. KIDNEYS AND URETERS: There is a 4 mm stone in the lower pole of the left kidney. There are bilateral peripelvic and left renal cortical cysts. No imaging follow-up recommended. No hydronephrosis. There is some distortion of the collecting systems from the cyst. Collecting systems are otherwise normal. There is good opacification of the right ureter with excreted contrast which is normal-appearing. There is not optimal contrast opacification of the left mid and distal ureter. The left ureter does not appear dilated. BLADDER: There is diffuse bladder wall thickening. There is some mild stranding of the perivesicular fat. There is a small amount of air in the bladder. Prostate gland is enlarged and heterogeneous appearing and protrudes into the base of the bladder. No definite bladder mass is appreciated.? GASTROINTESTINAL TRACT: There is diverticulosis of the colon. No evidence of diverticulitis. Small and large bowel is otherwise unremarkable. The appendix is unremarkable. There may be fold thickening of the stomach.? ABDOMINAL WALL: Small umbilical hernia containing fat. Bilateral inguinal hernias containing fat.? LYMPH NODES: There is an enlarged right pelvic sidewall lymph node measuring 1 x 1.5 cm axial image 70 series 13. There is a smaller right internal iliac pelvic lymph node measuring 5 mm axial image 75 series 13. There is a small right common iliac lymph node measuring 8 mm in short axis axial image 61 series 13. VASCULAR: Unremarkable PELVIC VISCERA: The prostate gland is enlarged and heterogeneous appearing and protrudes into the base of the bladder. The prostate gland measures 6 x 6 x 6 cm in dimension and is lobulated in contour. The seminal vesicles appear enlarged. There are cystic changes.? OSSEOUS STRUCTURES: Small sclerotic lesion in the right iliac bone, right posterior 11th rib and L3 vertebral body. Degenerative changes of the spine. IMPRESSION: Enlarged very heterogeneous prostate gland that protrudes into the base of the bladder. There is some stranding of the perivesicular fat and mild diffuse bladder wall thickening. No bladder mass is appreciated. Small amount of air in the bladder. Clinically correlate i.e. has there been recent bladder catheterization. Differential would include infection and less likely fistula. Both seminal vesicles are enlarged with cystic changes. Right pelvic retroperitoneal lymphadenopathy. There is a slightly enlarged right iliac bifurcation or pelvic sidewall lymph node. Other pelvic lymph nodes are normal in size. Distorted bilateral renal collecting systems from bilateral renal peripelvic cysts. Collecting systems are otherwise normal. Normal-appearing right ureter. Left ureter not optimally opacified with excreted contrast. Fullness of the left adrenal gland. No definite adrenal mass. Mild diverticulosis of the colon. Question prominent folds or thickening in the proximal stomach. Assessment & Plan Assessment & Plan (1) Testicular pain: Code(s): N50.819 - Testicular pain, unspecified (2) Urinary retention: Code(s): R33.9 - Retention of urine, unspecified (3) Orchitis: Code(s): N45.2 - Orchitis Plan Will increase Levaquin from 500 mg to 750 mg dialy. Proscar 5 mg daily was ordered.? Advised the patient to discontinue Bethanechol which he did not start, and continue tamsulosin BID 0.4 mg daily. Will keep the Stevens catheter in, and follow up in one week. Orders: Orders AMB Urinalysis Automated 03/22/23 N39.0 - Urinary tract infection, site not specified, A49.9 - Bacterial infection, unspecified Medications: New levofloxacin 750 mg PO DAILY 7 tabs 0RF 7 days finasteride (Proscar) 5 mg PO DAILY 90 tabs 3RF 90 days C61 - Malignant neoplasm of prostate Patient Instructions: The patient had an opportunity to ask questions regarding treatment plan. All questions were answered. Imaging, Laboratory studies and physical exam results were discussed and reviewed in detail. No major barriers to understanding were identified. The patient expressed understanding and agreement with the above treatment plan.? ? ? The patient is aware they should contact our office by phone for worsening of their current condition or the appearance of new symptoms. Compliance is encouraged with any medications and followup testing that is ordered.? ? ? It is a privilege to be allowed the opportunity to participate in the urologic care of your patient. If you have any questions or concerns regarding treatment for the above conditions please do not hesitate to contact me. The office telephone contact is [phone].? ? ? This note is constructed in part using voice recognition software. While every effort has been made to ensure accuracy pier master assistant errors may have been included.? ? ? Yours sincerely,? ? ? Nas Quintero MD? ? Coding Level of Care Code Est Pt Level 4 (10720) Diagnoses Testicular pain N50.819 Urinary retention R33.9 Orchitis N45.2
== END 2023-03-22 12:31 | disposition home or self-care (01) ==
PROVIDERS: PCP Internal Medicine; Visit Provider Urology
DX: N50.819 Testicular pain, unspecified (principal); R33.9 Retention of urine, unspecified; N45.2 Orchitis
CPT/HCPCS: 99214

== ENCOUNTER → 2023-03-22 11:25 | Outpatient (BNVA) | payer BC, SELFPAY | PROVIDERS: PCP Internal Medicine; Visit Provider Urology | DX: N45.2 Orchitis (principal); N50.819 Testicular pain, unspecified; R33.9 Retention of urine, unspecified; Z79.899 Other long term (current) drug therapy | CPT/HCPCS: 81003 ==

== ENCOUNTER 2023-03-27 11:33 | Outpatient (AMB) | payer BC, SELFPAY ==
--- NOTE | 2023-03-27 04:51 | MHC.OFFVIS ---
Intake Intake Visit Reasons: 1w follow up Intake Note: Patient presents today for a follow-up on 1 week follow-up: Meds: Tamsulosin Allergies to Antibiotic: No Known Allergies Blood Thinner: None Risk Adjustment Specialist Required: No Allergies codeine Adverse Reaction (Intermediate, Verified 04/11/23 13:08) Vomiting Medication List - Last Reconciled 03/27/23 by Nas Quintero MD acetaminophen 650 mg (2 x 325 mg) PO Q6H PRN ampicillin 500 mg PO Q6H 10 days ceftriaxone 1 g IV 2200 finasteride (Proscar) 5 mg PO DAILY 90 days heparin(porcine) in 0.45% NaCl 25,000 unit/250 mL 25,000 units (250 mL) continuous IV infusion .Q0M levofloxacin 750 mg PO DAILY 7 days melatonin 6 mg (2 x 3 mg) PO BEDTIME PRN morphine 2 mg See Protocol IVPUSH Q6H PRN omeprazole 40 mg PO DAILY tamsulosin 0.8 mg (2 x 0.4 mg) PO DAILY 30 days zolpidem 10 mg PO DAILY PRN HPI HPI Comments History of Present Illness Details Rosalio is a 68-year-old male who presents today to the office for a follow-up. 03/27/2023? He is followed today for urinary retention, urinary tract infections and orchitis. He was last seen by me on 03/22/2023 for urinary retention and benign prosatic hyperplasia.?The patient was recommended to increase Levaquin from 500 mg to 750 mg dialy, and Proscar 5 mg was ordered at that time. The patient was advised to discontinue Bethanechol which he did not start, and he was advised to continue tamsulosin BID 0.4 mg daily at that time. He was advised to follow-up in one week during that time. He states that he still has some discomfort in the kidneys. Patient has been having significant tendonitis. Scrotum left scrotal swelling and tenderness improved, stevens in place Review of charts: Last visit: 03/22/2023: I reviewed the US scrotum results from 03/17/2023 revealed complex left hyrocele with septations, small right epididymal body cyst, and normal testes with increased vascularity. Incidental finding of right appendix testes. I reviewed the CAT scan of the abdomen/pelvis results from 03/15/2023 revealed 4 mm stone in the lower pole of the left kidney and bilateral renal cyst. Heterogenous prostate gland protruding into the base of the bladder. ? 03/27/2023: Plan: Will switch to ampicillin once he completes the 7 day course of Levaquin due to his symptoms of tendonitis. Repeat US scrotum [facility] Medical History Mood disorder Neuropathy, lower extremity Urinary retention Family History Father No problems noted. Mother No problems noted. Social History Household Members: Significant Other Housing: House Do you presently have visiting nurse or other home services: No Alcohol intake: never Patient Tobacco Use Status: Former Tobacco user Years Smoked: 10 Substance Use Type: Marijuana service: No Review of Systems Const All systems reviewed & are unremarkable except as noted in HPI and below Reports no additional complaints Eyes Reports no additional complaints ENT Reports no additional complaints Card Denies dyspnea Resp Denies cough and Denies dyspnea GI Reports no additional complaints Musc Reports no additional complaints Skin/Breast Denies rash and Denies unusual bruising Neuro Reports no additional complaints Psych Reports no additional complaints Endo Reports no additional complaints Maury/Lymph Reports no additional complaints Aller/Immun Reports no additional complaints Physical Exam Const General: healthy appearing, no acute distress and well developed Orientation/consciousness: patient oriented x3 HEENT Head: Yes normocephalic and Yes atraumatic Eyes Conjunctivae: conjunctivae normal Neck Neck: Yes normal visual inspection Chest Chest palpation & inspection: normal inspection of the chest Resp Effort & Inspection: normal respiratory effort Cardio Rate: regular rate GI Inspection: Yes normal to inspection Palpation (GI): Soft to palpation Other: scrotum left scrotal swelling and tenderness improved, stevens in place Neuro General: patient oriented x3 Extrem General: No pedal edema Psych Appearance: grossly normal Affect: normal affect Assessment & Plan Assessment & Plan (1) Orchitis: Code(s): N45.2 - Orchitis (2) Testicular pain: Code(s): N50.819 - Testicular pain, unspecified (3) Urinary retention: Code(s): R33.9 - Retention of urine, unspecified Plan Will switch to ampicillin once he completes the 7 day course of Levaquin due to his symptoms of tendonitis. US scrotum was ordered. Orders: Orders US scrotum 03/27/23 N50.819 - Testicular pain, unspecified, N45.2 - Orchitis Medications: New ampicillin take one every 6 hrs 500 mg PO Q6H 40 caps 0RF 10 days ampicillin take one every 6 hrs, start ampicillin once completing levaquin 500 mg PO Q6H 40 caps 0RF 10 days Patient Instructions: The patient had an opportunity to ask questions regarding treatment plan. All questions were answered. Imaging, Laboratory studies and physical exam results were discussed and reviewed in detail. No major barriers to understanding were identified. The patient expressed understanding and agreement with the above treatment plan.? ? ? The patient is aware they should contact our office by phone for worsening of their current condition or the appearance of new symptoms. Compliance is encouraged with any medications and followup testing that is ordered.? ? ? It is a privilege to be allowed the opportunity to participate in the urologic care of your patient. If you have any questions or concerns regarding treatment for the above conditions please do not hesitate to contact me. The office telephone contact is [phone].? ? ? This note is constructed in part using voice recognition software. While every effort has been made to ensure accuracy profile saw setup operator errors may have been included.? ? ? Yours sincerely,? ? ? Nas Quintero MD? Coding Level of Care Code Est Pt Level 3 (26297) Diagnoses Orchitis N45.2 Testicular pain N50.819 Urinary retention R33.9
== END 2023-03-27 12:31 | disposition home or self-care (01) ==
PROVIDERS: PCP Internal Medicine; Visit Provider Urology
DX: N45.2 Orchitis (principal); N50.819 Testicular pain, unspecified; R33.9 Retention of urine, unspecified
CPT/HCPCS: 99213

== ENCOUNTER → 2023-03-27 11:33 | Outpatient (BNVA) | payer BC, SELFPAY | PROVIDERS: PCP Internal Medicine; Visit Provider Urology ==

== ENCOUNTER 2023-03-27 14:46 | Outpatient (REF) | payer BC, SELFPAY ==
--- NOTE | ~2023-03-27 | US_ITS ---
EXAMINATION: US SCROTUM CLINICAL INFORMATION: Testicular pain. COMPARISON: Scrotal ultrasound dated 03/17/2023 TECHNIQUE: A sonogram of the scrotum was performed assessing mckee-scale appearance and color Doppler flow. Spectral Doppler analysis of the arterial and venous flow were performed in the testes bilaterally. FINDINGS: RIGHT: Right testicle measures 5.3 x 2.5 x 3.8 cm, volume 26.5 mL. No focal testicular parenchymal lesions are visualized. Spectral Doppler analysis of the arterial and venous flow is normal in the right testis. Right epididymal head is normal in size. Tiny anechoic cyst measuring 0.3 cm. A second anechoic cyst in the tail measures up to 0.5 cm. Small right hydrocele. Right epididymal Doppler flow is normal. An extratesticular small calcification measures 0.4 cm. LEFT: Left testicle measures 4.7 x 3.0 x 3.5 cm, volume 25.3 mL. No focal testicular parenchymal lesions are visualized. Spectral Doppler analysis of the arterial and venous flow is significantly increased in the left testis. Left epididymal head is normal in size. A complex heterogeneous hydrocele without vascularity is seen as well. Left epididymal Doppler flow is significantly increased. US/US scrotum IMPRESSION: 1. Significant increased left testicular and epididymal vascularity complex left hydrocele most consistent with worsened epididymo-orchitis. 2. Small right hydrocele.
== END 2023-03-27 14:47 | disposition home or self-care (01) ==
LOC: HO.US 14:46
PROVIDERS: PCP Internal Medicine; Visit Provider Urology
DX: N50.819 Testicular pain, unspecified (principal); N45.2 Orchitis
CPT/HCPCS: 76870

== ENCOUNTER 2023-04-11 13:02 | Outpatient (AMB) | payer BC, SELFPAY ==
--- NOTE | 2023-04-11 13:07 | MHC.OFFVIS ---
Intake Intake Visit Reasons: 2w/US Intake Note: Patient presents today for a follow-up on US Results, completed on 03/27/2023: Meds: Tamsulosin Allergies to Antibiotic: No Known Allergies Blood Thinner: None Allergies codeine Adverse Reaction (Intermediate, Verified 04/11/23 13:08) Vomiting levofloxacin [From Levaquin] Adverse Reaction (Mild, Verified 05/14/23 06:38) Muscle Pain Medication List - Last Reconciled 04/11/23 by Nas Quintero MD acetaminophen 650 mg (2 x 325 mg) PO Q6H PRN ampicillin 500 mg PO Q6H 10 days ceftriaxone 1 g IV 2200 colchicine (gout) 0.6 mg PO BID finasteride (Proscar) 5 mg PO DAILY 90 days heparin(porcine) in 0.45% NaCl 25,000 unit/250 mL 25,000 units (250 mL) continuous IV infusion .Q0M levofloxacin 750 mg PO DAILY 7 days melatonin 6 mg (2 x 3 mg) PO BEDTIME PRN morphine 2 mg See Protocol IVPUSH Q6H PRN omeprazole 40 mg PO DAILY tamsulosin 0.8 mg (2 x 0.4 mg) PO DAILY 30 days zolpidem 10 mg PO DAILY PRN HPI HPI Comments History of Present Illness Details Rosalio is a 68-year-old male who presents today to the office for a follow-up. 04/11/2023? He is followed today for urinary retention, completed scrotal US. He was last seen by me on 03/27/2023 for orchitis. The patient was advised to switch to ampicillin once he completes the 7 day course of Levaquin due to his symptoms of tendonitis, and US scrotum was ordered during that time. He states that he still has some discomfort in the left testicle. He has been taking Proscar 5 mg daily. I reviewed the US scrotum results from 03/27/2023 revealed significant increased left testicular and epididymal vascularity complex left hydrocele most consistent with worsened epididymo-orchitis. Small right hydrocele. 04/11/2023: Cystoscopy procedure: Consent was obtained to perform cystoscopy procedure. Cystoscopy findings: Prostate trilobar enlargement, prostate was obstructive and significant bladder wall thickening. 04/11/2023: Plan: TURP was discussed to be scheduled. The patient and his has several questions. Lengthy discussion related to risks and benefits, including but not limited to hematuria, infection, persistent urinary retention and need for chronic catheter, admission for bladder irrigation and observation. 30 min. Patient will continue taking antibiotics for orchitis. [facility] Medical History Mood disorder Neuropathy, lower extremity Urinary retention Family History Father No problems noted. Mother No problems noted. Social History Household Members: Significant Other Housing: House Do you presently have visiting nurse or other home services: No Alcohol intake: never Patient Tobacco Use Status: Former Tobacco user Quit Date: 30 years ago Years Smoked: 10 Second Hand Smoke Exposure: No Substance Use Type: Marijuana service: No Office Procedures Cystoscopy Consent Discussed risk and benefit or proposed procedure with the patient. Information consent for procedure given to the patient. Discussed technical aspects, risks, benefits and alternatives in full. Addressed all of the patient's questions and concerns regarding the procedure. The patient demonstrated knowledge and understanding. They wish to proceed with this procedure. Preparation The patient was prepped in the usual manner. A montessori lead teacher was present and in the room. Genitalia was prepped with betadine solution in a sterile manner. Lidocaine Jelly 2% was placed into the urethra and 16Fr flexible Olympus cystoscope was inserted into the meatus after adequate lubrication. Procedure Time out per protocol performed. Bladder Inspection Bladder Inspection: The bladder was inspected in its entirety with utilization retroflexion displaying: Tumor(s): none visualized Trabeculation: moderate and cellule changes Mucosal Erthema: present c/w presence of chronic catheter Orifices: not well visualized Urethra: normal Cystoscopy findings: Prostate trilobar enlargement, prostate was obstructive and significant bladder wall thickening. 16 fr coude cath removed prior to cysto prep, pt tolerated removal well. 16 fr stevens was replaced after cystoscopy 66214-[id number] of temporary indwelling bladder catheter, simple 07039-Npetwknyfn DISPOSABLE SCOPE URO-G FLEXIBLE SCOPE Procedure code (CPT) selection complete Post Void Residual Post Residual Void Post Void Residual (PVR): 71 [id number] Void Residual by ultrasound Office Meds lidocaine HCl 2 % mucosal jelly in applicator Performing Provider: Nas Quintero MD Performing Location: [facility] [place] Administered by: Felicitas Núñez RN on 04/11/23 13:59 Dose Route Admin Location Dispensed Lot Number Expiration Date NDC Data Review Specialist 10 mL intra-urethral 20 mL nitrofurantoin monohydrate/macrocrystals 100 mg capsule Performing Provider: Nas Quintero MD Performing Location: [facility] [place] [facility] Administered by: Felicitas Núñez RN on 04/11/23 13:59 Dose Route Admin Location Dispensed Lot Number Expiration Date NDC Data Review Specialist 100 mg PO 1 cap naproxen 500 mg tablet Performing Provider: Nas Quintero MD Performing Location: [facility] [place] [facility] Administered by: Felicitas Núñez RN on 04/11/23 13:59 Dose Route Admin Location Dispensed Lot Number Expiration Date NDC Data Review Specialist 500 mg PO 1 tab Results AMB Urinalysis, Automated UA Leukoctes 100 Kristina/uL Last Edit by Candi Rojas, [facility] on 04/11/23 13:21 15 Candi Rojas 04/11/23 13:21 UA Nitrite Negative Last Edit by Candi Rojas [facility] on 04/11/23 13:21 UA Urobilinogen 0.2 mg/dL Last Edit by Candi Rojas [facility] on 04/11/23 13:21 UA Protein 0 mg/dL Last Edit by Candi Rojas [facility] on 04/11/23 13:21 UA pH 6.0 Last Edit by Candi Rojas [facility] on 04/11/23 13:21 UA Blood 0 Raimnudo/uL Last Edit by Candi Rojas [facility] on 04/11/23 13:21 UA Specific [place] 1.015 Last Edit by Candi Rojas [facility] on 04/11/23 13:21 UA Ketone Negative Last Edit by Candi Rojas [facility] on 04/11/23 13:21 UA Bilirubin 0 mg/dL Last Edit by Candi Rojas [facility] on 04/11/23 13:21 UA Glucose 0 mg/dL Last Edit by CandiHENOK Cox on 04/11/23 13:21 Results Reviewed Results Reviewed: Laboratory Last Values Urine pH (Auto) 6.0 04/11/23 13:10 Specific [place] (Auto) 1.015 04/11/23 13:10 Urine Protein (Auto) 0 mg/dL 04/11/23 13:10 Glucose (UA)(Auto) 0 mg/dL 04/11/23 13:10 Urine Ketones (Auto) Negative 04/11/23 13:10 Urine Blood (Auto) 0 Raimundo/uL 04/11/23 13:10 Urine Nitrite (Auto) Negative 04/11/23 13:10 Urine Bilirubin (Auto) 0 mg/dL 04/11/23 13:10 Urine Urobilinogen (Auto) 0.2 mg/dL 04/11/23 13:10 Leukocyte Esterase (Auto) 100 Kristina/uL 04/11/23 13:10 Date of Service: 03/27/23 EXAMINATION: US SCROTUM CLINICAL INFORMATION:? Testicular pain. COMPARISON:? Scrotal ultrasound dated 03/17/2023 FINDINGS: RIGHT: Right testicle measures 5.3 x 2.5 x 3.8 cm, volume 26.5 mL. No focal testicular parenchymal lesions are visualized. Spectral Doppler analysis of the arterial and venous flow is normal in the right testis. Right epididymal head is normal in size. Tiny anechoic cyst measuring 0.3 cm. A second anechoic cyst in the tail measures up to 0.5 cm. Small right hydrocele. Right epididymal Doppler flow is normal. An extratesticular small calcification measures 0.4 cm. LEFT: Left testicle measures 4.7 x 3.0 x 3.5 cm, volume 25.3 mL. No focal testicular parenchymal lesions are visualized. Spectral Doppler analysis of the arterial and venous flow is significantly increased in the left testis.? Left epididymal head is normal in size. A complex heterogeneous hydrocele without vascularity is seen as well. Left epididymal Doppler flow is significantly increased. IMPRESSION: 1. Significant increased left testicular and epididymal vascularity complex left hydrocele most consistent with worsened epididymo-orchitis. 2. Small right hydrocele. Assessment & Plan Assessment & Plan (1) Testicular pain: Code(s): N50.819 - Testicular pain, unspecified (2) Orchitis: Code(s): N45.2 - Orchitis (3) Urinary retention: Code(s): R33.9 - Retention of urine, unspecified (4) Urinary tract infection: Code(s): N39.0 - Urinary tract infection, site not specified Plan TURP was discussed to be scheduled. Patient will continue taking antibiotics. Orders: Orders AMB Urinalysis Automated 04/11/23 Z13.9 - Encounter for screening, unspecified AMB Post Void Residual by ultrasound 04/11/23 R33.9 - Retention of urine, unspecified Urine Culture 04/11/23 N39.0 - Urinary tract infection, site not specified AMB Cystoscopy 04/11/23 R33.9 - Retention of urine, unspecified Patient Instructions: The patient had an opportunity to ask questions regarding treatment plan. All questions were answered. Imaging, Laboratory studies and physical exam results were discussed and reviewed in detail. No major barriers to understanding were identified. The patient expressed understanding and agreement with the above treatment plan.? ? ? The patient is aware they should contact our office by phone for worsening of their current condition or the appearance of new symptoms. Compliance is encouraged with any medications and followup testing that is ordered.? ? ? It is a privilege to be allowed the opportunity to participate in the urologic care of your patient. If you have any questions or concerns regarding treatment for the above conditions please do not hesitate to contact me. The office telephone contact is [phone].? ? ? This note is constructed in part using voice recognition software. While every effort has been made to ensure accuracy sales account executive errors may have been included.? ? ? Yours sincerely,? ? ? Nas Quintero MD? Coding Level of Care Code Est Pt Level 4 (24742) Diagnoses Testicular pain N50.819 Orchitis N45.2 Urinary retention R33.9 Urinary tract infection N39.0 CPT Codes Cystoscopy - CPT: 39261-Ydznnhebqf ([id number]) Cystoscopy - CPT: 66739-Rqdvnqehb of temporary indwelling bladder catheter, simple ([id number]) Post Residual Void - PVR CPT Code: 48489-Zgkf Void Residual by ultrasound ([id number])
== END 2023-04-11 14:41 | disposition home or self-care (01) ==
PROVIDERS: PCP Internal Medicine; Visit Provider Urology
DX: N50.819 Testicular pain, unspecified (principal); N45.2 Orchitis; R33.9 Retention of urine, unspecified; N39.0 Urinary tract infection, site not specified
CPT/HCPCS: 52000; 99214

== ENCOUNTER 2023-04-11 13:02 | Outpatient (REF) | payer BC, SELFPAY | END 2023-04-11 13:03 | disposition home or self-care (01) | LOC: HO.LAB 13:02 | PROVIDERS: PCP Internal Medicine; Visit Provider Urology | DX: R33.9 Retention of urine, unspecified (principal); N45.2 Orchitis; N50.812 Left testicular pain; N39.0 Urinary tract infection, site not specified | CPT/HCPCS: 51798; 52000; 81003; 87086; 87088 ==

== ENCOUNTER 2023-05-14 05:56 | Day surgery (SDC) | payer BC, SELFPAY ==
--- NOTE | 2023-05-13 13:16 | HO.ANESPROP2 ---
HPI - Anesthesia Eval Consult details Narrative: 68yo M for Cystoscopy TUR Prostate Pt admitted to [facility] 02/2023 with urinary retention. During admit, had chest pain and EKG changes. Pt transferred from [facility] to [facility] 02/2023 for ACS vs pericarditis. ACS r/o and started on colchicine. (Called for cardiology consult/progress notes from admit 05/13/23) Seen by PCP for discharge f/u 03/2023 - optimized for uro procedure PMFSH Active Problems Active Problems: All Active Problems (Updated 03/27/23 @ 12:11 by Nas Quintero MD) Orchitis (Acute) Testicular pain (Acute) Mood disorder (Acute) Urinary retention (Acute) Neuropathy, lower extremity (Acute) Acute epididymo-orchitis (Acute) Urinary tract infection (Acute) Past Medical History Medical History Mood disorder Neuropathy, lower extremity Urinary retention Family History Family History Father No problems noted. Mother No problems noted. Social History Social History Household Members: Significant Other Housing: House Do you presently have visiting nurse or other home services: No Alcohol intake: never Patient Tobacco Use Status: Former Tobacco user Quit Date: 30 years ago Years Smoked: 10 Second Hand Smoke Exposure: No Substance Use Type: Marijuana service: No Meds Allergies Allergy/AdvReac Type Severity Reaction Status Date / Time codeine AdvReac Intermediate Vomiting Verified 04/11/23 13:08 levofloxacin [From Levaquin] AdvReac Mild Muscle Pain Verified 05/14/23 06:38 Home Medications Medication Instructions Recorded Confirmed Last Taken Type zolpidem 10 mg tablet 10 mg PO DAILY PRN Sleep 02/08/23 05/14/23 05/13/23 History omeprazole 40 mg capsule,delayed 40 mg PO DAILY 03/18/23 05/14/23 05/14/23 History release colchicine (gout) 0.6 mg tablet 0.6 mg PO BID 04/11/23 05/14/23 05/14/23 History Exam Exam Date and Time: May 13, 2023 1316 Pertinent Lab Results Pertinent Lab Results: Laboratory Tests 03/18/23 03/18/23 03/19/23 04:35 04:35 04:45 WBC Hgb Hct Plt Count 253 Sodium 136 Potassium 3.4 Chloride 106 Carbon Dioxide 21 L BUN 10 Creatinine 1.08 03/19/23 04:45 WBC 28.6 H Hgb 12.7 L Hct 36.5 L Plt Count Sodium Potassium Chloride Carbon Dioxide BUN Creatinine Narrative Narrative: EKG 02/2023 ([facility]) NSR @ 74 ? LAE ST elevation, consider early repol, pericarditis, or injury ECHO 02/2023 LV size is nml MOderate discrete upper septal thickening LV sysltolic function is low normal LVEF 50-55% Mild hypokinesis of mid to distal lateral wall and inferolateral wall. LV filling pressures are indeterminate RV size and function appears grossly nml Assessment and Plan Assessment Anesthesia Assessment: Chart Reviewed
[2023-05-14] VITALS (11 sets, daily range): BP systolic 98–168; BP diastolic 53–82; PULSE 60–89; RESP 16–17; TEMP 36.1–37.2; O2SAT 97–99; BMI 25.3; BMI 27.4
--- NOTE | 2023-05-14 06:49 | PC.NURSE ---
patient reported tendon pain while taking levaquin a few months ago. Levaquin 500mg iv preop ordered. Weldon text to Dr. Quintero to confirm preop abx.
--- NOTE | 2023-05-14 07:19 | P.CONAN_ITS ---
[facility] Active Problems Active Problems: All Active Problems (Updated 03/27/23 @ 12:11 by Nas Quintero MD) Orchitis (Acute) Testicular pain (Acute) Mood disorder (Acute) Urinary retention (Acute) Neuropathy, lower extremity (Acute) Acute epididymo-orchitis (Acute) Urinary tract infection (Acute) Past Medical History Medical History Mood disorder Neuropathy, lower extremity Urinary retention Functional capacity: independent ambulation Family History Family History Father No problems noted. Mother No problems noted. Family history of problems with anesthesia: No Surgical History History of Problems with Anesthesia: No Social History Social History Household Members: Significant Other Housing: House Do you presently have visiting nurse or other home services: No Alcohol intake: never Patient Tobacco Use Status: Former Tobacco user Quit Date: 30 years ago Years Smoked: 10 Use of substances other than those prescribed or required for medical reasons: No Substance Use Type: Marijuana Are you DNR?: No Advance Directives: No Advance Directives Information Provided: Yes Advance Directives on File: No service: No Meds Allergies Allergy/AdvReac Type Severity Reaction Status Date / Time codeine AdvReac Intermediate Vomiting Verified 04/11/23 13:08 levofloxacin [From Levaquin] AdvReac Mild Muscle Pain Verified 05/14/23 06:38 Home Medications Medication Instructions Recorded Confirmed Last Taken Type zolpidem 10 mg tablet 10 mg PO DAILY PRN Sleep 02/08/23 05/14/23 05/13/23 History omeprazole 40 mg capsule,delayed 40 mg PO DAILY 03/18/23 05/14/23 05/14/23 History release colchicine (gout) 0.6 mg tablet 0.6 mg PO BID 04/11/23 05/14/23 05/14/23 History Exam Exam Date and Time: May 14, [id number] Height,Weight and Vital Signs: Height 5 ft 8 in Weight 75.6 kg Last Vital Signs Temp 97.3 F 05/14/23 06:46 Pulse 77 05/14/23 06:46 Resp 16 05/14/23 06:46 BP 144/81 H 05/14/23 06:46 Pulse Ox 99 05/14/23 06:46 O2 Del Method Room Air 05/14/23 06:46 Airway Mallampati Class: II TM Dist: >3cm Neck ROM: Full Heart: RRR Lungs: CTA Assessment and Plan Assessment Anesthesia Assessment: Anesthesia Plan Discussed Final Anesthetic Review Family History of Problems with Anesthesia: No History of Problems with Anesthesia: No NPO: Yes ASA Class: II Final Preanesthetic Review: Meds/Allgs Chart Reviewed, Consent Obtained/Reviewed and Anes Risks/Benef Reviewed Patient Risk: Low Procedure Risk: Low Anesthetic Plan Anesthetic Plan: MAC: Disposition: Standard PACU
--- NOTE | 2023-05-14 07:47 | MHC.SHP ---
Pre-Procedural Eval Section A Date of Service: 05/14/23 The patient is an INPATIENT: No The History & Physical has been completed within 30 days and I have reviewed it.: Yes Section B Chief Complaint: Retention of urine, unspecified Allergies: Allergies Allergy/AdvReac Type Severity Reaction Status Date / Time codeine AdvReac Intermediate Vomiting Verified 04/11/23 13:08 levofloxacin [From Levaquin] AdvReac Mild Muscle Pain Verified 05/14/23 06:38 Plan Diagnosis/Plan: Unchanged I have reviewed the history and physical and performed a pertinent physical examination on my patient. No changes have occurred unless specified. Transurethral resection of prostate. Time Spent With Patient Time: Total time managing care of this patient today ____ minutes.
--- NOTE | 2023-05-14 09:28 | P.OP_ITS ---
Operative Note Operative Note Date of Service: 05/14/23 Narrative: PREOP DIAGNOSIS: Bladder outlet obstruction, enlarged prostate, POSTOP DIAGNOSIS: Bladder outlet obstruction, enlarged prostate, PROCEDURE: CYSTOSCOPY TRANSURETHRAL RESECTION OF Prostate Anesthesia: General Details of procedure: The patient was brought into the operating room placed on the OR table in supine position. Gentamycin 160 mg, 2 g of Ampicillin IV. General anesthesia was administered. The patient was repositioned into lithotomy position, stevens removed, the patient was prepped and draped in the usual sterile fashion. Time-out was done per protocol. The 24 [place] resectoscope was passed transurethrally into the bladder. The bulbous urethra was within normal limits. The prostatic urethra - trilobar enlargement with obstructive median lobe. Visualization of the bladder, trigone in normal position, moderate trabeculations and cellulle changes. An inision was made at the 7 oclock position from the bladder neck to just before the veru. The loop resectoscope was used to resect the prostate, the right, left and median lobe, care was taken to preserve the Veru, the Ellik was used to irrigate out the prostatic chips, the roller ball was used to obtain adequate hemostatsis.. Once there was good hemostasis the resectoscope was removed. A [address] catheter with stylet was passed without difficulty. 45 mL H20 injected into the balloon, stevens placed on tension. CBI with Normal Saline was started in OR. The patient was brought out of anesthesia and taken to recovery in stable condition. Complications: None Drains: [address] catheter 45 cc balloon
--- NOTE | 2023-05-14 09:50 | PHA.MEDREC ---
Pharmacy Consult ? Medication Reconciliation Pharmacy has completed the medication reconciliation. REVIEWED MED REC DONE BY NURSING
[2023-05-14] MEDS: oxyCODONE HCl Immed Release 5 MG TABLET PO (10:25)
[2023-05-14] MEDS: Dextrose 5 % and 0.9 % NaCl 1,000 ML 100 ML IVCONT ×2 (12:04→21:03)
[2023-05-14] MEDS: Colchicine 0.6 MG TABLET PO (20:58)
[2023-05-14] MEDS: Docusate Sodium 100 MG CAPSULE PO (20:58)
[2023-05-14] MEDS: Zolpidem Tartrate 5 MG TABLET PO (21:08)
[2023-05-14] MEDS: Pregabalin 75 MG CAPSULE PO (22:26)
[2023-05-15 04:00] VITALS: BP 124/61; PULSE 78; RESP 18; TEMP 36.2; O2SAT 98
[2023-05-15] MEDS: Omeprazole 40 MG CAPSULE.DR PO (05:56)
[2023-05-15] MEDS: Dextrose 5 % and 0.9 % NaCl 1,000 ML 100 ML IVCONT (05:58)
[2023-05-15 07:22] VITALS: O2SAT 100
[2023-05-15 07:54] VITALS: BP 125/74; PULSE 67; RESP 17; TEMP 36.4; O2SAT 100
[2023-05-15] MEDS: Docusate Sodium 100 MG CAPSULE PO (08:54)
[2023-05-15] MEDS: Colchicine 0.6 MG TABLET PO (08:54)
[2023-05-15] MEDS: Finasteride 5 MG TABLET PO (08:54)
--- NOTE | 2023-05-15 09:22 | HO.POSTANES ---
Post Anesthesia Evaluation Post Anesthesia Evaluation Date of Service: 05/15/23 Vital Signs: Vital Signs Temp Pulse Resp BP Pulse Ox O2 Del Method 05/15/23 07:54 97.5 F 67 17 125/74 100 Room Air 05/15/23 04:00 97.2 F 78 18 124/61 98 Room Air Anesthesia: General Mental Status: Awake Pain Control: Satisfactory Nausea/Vomiting: None Hydration: Adequate Anesthesia-Related Issues: No Anes. Related Issues
[2023-05-15 09:30] VITALS: O2SAT 100
--- NOTE | 2023-05-15 09:32 | MHC.CM.PN ---
Pt is independent, lives with S.O., he does not require med equipment or home health services. HCP form completed and added to chart. Plan is home, self care. His S.O. will drive him home.
[2023-05-15] MEDS: Pregabalin 75 MG CAPSULE PO (09:56)
--- NOTE | 2023-05-15 15:56 | MHC.CM.PN ---
Pt has been medically cleared for DC. He will go home via private transport, self care.
== END 2023-05-15 17:07 | disposition home health service (06) ==
LOC: HO.SSS 05:57 → HO.S3 10:24
PROVIDERS: PCP Internal Medicine; Visit Provider Urology
PROC: 0VT08ZZ Resection of Prostate, Via Natural or Artificial Opening Endoscopic (ICD-10-PCS; CPT 52601; principal; 2023-05-14 07:30)
DX: R33.9 Retention of urine, unspecified (principal); N43.3 Hydrocele, unspecified; G57.90 Unspecified mononeuropathy of unspecified lower limb; F39 Unspecified mood [affective] disorder; Z79.899 Other long term (current) drug therapy; Z88.1 Allergy status to other antibiotic agents; Z88.5 Allergy status to narcotic agent; Z87.891 Personal history of nicotine dependence
CPT/HCPCS: 52601; 88305; 88341; 88342; C1758; J0290; J1100; J1580; J2250; J2405; J3010

== ENCOUNTER → 2023-05-14 05:56 | Outpatient (BNV) | payer BC, SELFPAY | PROVIDERS: PCP Internal Medicine; Visit Provider Urology | DX: N40.1 Benign prostatic hyperplasia with lower urinary tract symptoms (principal); N32.0 Bladder-neck obstruction | CPT/HCPCS: 52601 ==

== ENCOUNTER 2023-06-14 08:36 | Outpatient (AMB) | payer BC, SELFPAY ==
--- NOTE | 2023-06-14 08:37 | A.OFFVIS_ITS ---
Intake Intake Visit Reasons: Post Op Cysto TURP/med review Intake Note: Patient presents today for a follow-up on Post Op Cysto TURP/Med Review: Meds: Finateride Allergies to Antibiotic: No Known Allergies Blood Thinner: None Glove Brusher Required: No Allergies codeine Adverse Reaction (Intermediate, Verified 04/11/23 13:08) Vomiting levofloxacin [From Levaquin] Adverse Reaction (Mild, Verified 05/14/23 06:38) Muscle Pain Medication List - Last Reconciled 06/14/23 by Nas Quintero MD acetaminophen 650 mg (2 x 325 mg) PO Q6H PRN colchicine (gout) 0.6 mg PO BID finasteride (Proscar) 5 mg PO DAILY 90 days omeprazole 40 mg PO DAILY zolpidem 10 mg PO DAILY PRN HPI HPI Comments History of Present Illness Details Rosalio is a 68-year-old male who presents today to the office for a follow-up. 06/14/2023- He is followed today for post op cystoscopy TURP/medications review. He is status post cystoscopy TURP done on 05/14/2023. He initially presented due to urinary retention requiring a Stevens catheter. Also develop orchitis. He states he is doing great. Patient states that he has a good urinary stream. No swelling in the testes. He states that he has started back to walking a mile and has not had any clots with urination. 06/14/2023: Evaluation today?UA? leukocy rajiv: trace; blood: 1 +. 06/14/2023: Plan: Continue Proscar for 6 months. Follow-up in 6 months and PSA screening at that time. [facility] Medical History Mood disorder Neuropathy, lower extremity Urinary retention Family History Father No problems noted. Mother No problems noted. Social History Household Members: Significant Other Housing: House Do you presently have visiting nurse or other home services: No Alcohol intake: never Patient Tobacco Use Status: Former Tobacco user Quit Date: 30 years ago Years Smoked: 10 Second Hand Smoke Exposure: No Substance Use Type: Marijuana service: No Review of Systems Const All systems reviewed & are unremarkable except as noted in HPI and below Reports no additional complaints Eyes Reports no additional complaints ENT Reports no additional complaints Card Denies dyspnea Resp Denies cough and Denies dyspnea GI Reports no additional complaints Musc Reports no additional complaints Skin/Breast Denies rash and Denies unusual bruising Neuro Reports no additional complaints Psych Reports no additional complaints Endo Reports no additional complaints Maury/Lymph Reports no additional complaints Aller/Immun Reports no additional complaints Physical Exam Const General: healthy appearing, no acute distress and well developed Orientation/consciousness: patient oriented x3 HEENT Head: Yes normocephalic and Yes atraumatic Eyes Conjunctivae: conjunctivae normal Neck Neck: Yes normal visual inspection Chest Chest palpation & inspection: normal inspection of the chest Resp Effort & Inspection: normal respiratory effort Cardio Rate: regular rate GI Inspection: Yes normal to inspection Palpation (GI): Soft to palpation Other: scrotum left scrotal swelling and tenderness improved, stevens in place Neuro General: patient oriented x3 Extrem General: No pedal edema Psych Appearance: grossly normal Affect: normal affect Results AMB Urinalysis, Automated UA Leukoctes 15 Kristina/uL Last Edit by HENOK Holt on 06/14/23 09:17 UA Nitrite Negative Last Edit by HENOK Holt on 06/14/23 09:17 UA Urobilinogen 0.2 mg/dL Last Edit by HENOK Holt on 06/14/23 09:1 7 UA Protein 0 mg/dL Last Edit by HENOK Holt on 06/14/23 09:17 UA pH 7.0 Last Edit by HENOK Holt on 06/14/23 09:17 UA Blood 25 Raimundo/uL Last Edit by HENOK Holt on 06/14/23 09:17 1+ Daniel Maciel 06/14/23 09:17 UA Specific [place] 1.005 Last Edit by HENOK Holt on 06/14/23 09: 17 UA Ketone Negative Last Edit by HENOK Holt on 06/14/23 09:17 UA Bilirubin 0 mg/dL Last Edit by Daniel Maciel, GREERA on 06/14/23 09:17 UA Glucose 0 mg/dL Last Edit by HENOK Holt on 06/14/23 09:17 Results Reviewed Results Reviewed: Laboratory Last Values Urine pH (Auto) 7.0 06/14/23 09:16 Specific [place] (Auto) 1.005 06/14/23 09:16 Urine Protein (Auto) 0 mg/dL 06/14/23 09:16 Glucose (UA)(Auto) 0 mg/dL 06/14/23 09:16 Urine Ketones (Auto) Negative 06/14/23 09:16 Urine Blood (Auto) 25 Raimundo/uL 06/14/23 09:16 Urine Nitrite (Auto) Negative 06/14/23 09:16 Urine Bilirubin (Auto) 0 mg/dL 06/14/23 09:16 Urine Urobilinogen (Auto) 0.2 mg/dL 06/14/23 09:16 Leukocyte Esterase (Auto) 15 Kristina/uL 06/14/23 09:16 Assessment & Plan Assessment & Plan (1) Screening PSA (prostate specific antigen): Code(s): Z12.5 - Encounter for screening for malignant neoplasm of prostate (2) BPH NOS w ur obs/LUTS: Code(s): N40.1 - Benign prostatic hyperplasia with lower urinary tract symptoms Plan Continue Proscar for 6 months. Follow-up in 6 months and PSA screening at that time. Orders: Orders PSA,Total (Free>4and<10) 4 Months N40.1 - Benign prostatic hyperplasia with lower urinary tract symptoms, Z12.5 - Encounter for screening for malignant neoplasm of prostate AMB Urinalysis Automated Today Z13.9 - Encounter for screening, unspecified Patient Instructions: The patient had an opportunity to ask questions regarding treatment plan. All questions were answered. Imaging, Laboratory studies and physical exam results were discussed and reviewed in detail. No major barriers to understanding were identified. The patient expressed understanding and agreement with the above treatment plan. The patient is aware they should contact our office by phone for worsening of their current condition or the appearance of new symptoms. Compliance is encouraged with any medications and followup testing that is ordered. It is a privilege to be allowed the opportunity to participate in the urologic care of your patient. If you have any questions or concerns regarding treatment for the above conditions please do not hesitate to contact me. The office telephone contact is [phone]. This note is constructed in part using voice recognition software. While every effort has been made to ensure accuracy homicide squad commanding officer errors may have been included. Yours sincerely, Nas Quintero MD Coding Level of Care Code Global (31464) Diagnoses Screening PSA (prostate specific antigen) Z12.5 BPH NOS w ur obs/LUTS N40.1
== END 2023-06-14 09:28 | disposition home or self-care (01) ==
PROVIDERS: PCP Internal Medicine; Visit Provider Urology
DX: Z12.5 Encounter for screening for malignant neoplasm of prostate (principal); N40.1 Benign prostatic hyperplasia with lower urinary tract symptoms; Z13.9 Encounter for screening, unspecified
CPT/HCPCS: 99024

== ENCOUNTER → 2023-06-14 08:36 | Outpatient (BNVA) | payer BC, SELFPAY | PROVIDERS: PCP Internal Medicine; Visit Provider Urology | DX: N40.1 Benign prostatic hyperplasia with lower urinary tract symptoms (principal); N13.8 Other obstructive and reflux uropathy; R33.8 Other retention of urine; Z12.5 Encounter for screening for malignant neoplasm of prostate | CPT/HCPCS: 81003 ==

== ENCOUNTER 2023-11-25 08:22 | Outpatient (AMB) | payer OTHER, SELFPAY ==
--- NOTE | 2023-11-25 08:31 | A.OFFVIS_ITS ---
Intake Visit Reasons: 6m follow up Intake Note: Patient presents today for a 6 month follow-up on: Meds: Finateride Allergies to Antibiotic: Levofloxacin Blood Thinner: None PVR- 70 mL 3D Specialist Required: No Accompanied by: Self / Same As Patient Allergies codeine Adverse Reaction (Intermediate, Verified 11/25/23 08:32) Vomiting levofloxacin [From Levaquin] Adverse Reaction (Mild, Verified 11/25/23 08:32) Muscle Pain Medication List - Last Reconciled 11/25/23 by Nas Quintero MD acetaminophen 650 mg (2 x 325 mg) PO Q6H PRN colchicine 0.6 mg PO BID finasteride (Proscar) 5 mg PO DAILY 90 days omeprazole 40 mg PO DAILY zolpidem 10 mg PO DAILY PRN HPI Comments Details: 11/25/2023 --Rosalio is a 68-year-old male who presents today to the office for a follow-up. Status post TURP 05/14/2023. The patient states he is voiding well he has been on finasteride 5 mg. He has an upcoming road trip with many stops over a 2 month period. I want him to continue the Proscar while on his trip and discontinue once he is back in [place]. Urinalysis negative for leukocytes negative for blood. Bladder scan PVR 70 mL. Plan discussed PSA today follow-up in 6 months. 06/14/2023- He is followed today for post op cystoscopy TURP/medications review. He is status post cystoscopy TURP done on 05/14/2023. He initially presented due to urinary retention requiring a Henry catheter. Also develop orchitis. He states he is doing great. Patient states that he has a good urinary stream. No swelling in the testes. He states that he has started back to walking a mile and has not had any clots with urination. Evaluation today?UA? leukocytes: trace; blood: 1 +. Plan disc--Continue Proscar for 6 months. PSA screening at that time. 11/25/23: Plan discussed PSA today follow-up in 6 months. [facility] Medical History Mood disorder Neuropathy, lower extremity Urinary retention Family History Father No problems noted. Mother No problems noted. Social History Household Members: Significant Other Housing: House Do you presently have visiting nurse or other home services: No Alcohol intake: never Patient Tobacco Use Status: Former Tobacco user Quit Date: 30 years ago Years Smoked: 10 Second Hand Smoke Exposure: No Substance Use Type: Marijuana service: No Review of Systems Const All systems reviewed & are unremarkable except as noted in HPI and below Reports no additional complaints Eyes Reports no additional complaints ENT Reports no additional complaints Card Reports no additional complaints Resp Reports no additional complaints GI Reports no additional complaints Reports as per HPI Musc Reports no additional complaints Skin/Breast Reports system reviewed and no additional complaints, except as documented Neuro Reports no additional complaints Psych Reports no additional complaints Endo Reports no additional complaints Maury/Lymph Reports no additional complaints Aller/Immun Reports no additional complaints Office Procedures Post Void Residual Post Residual Void Post Void Residual (PVR): 70 [id number] Void Residual by ultrasound Results AMB Urinalysis, Automated UA Leukoctes 0 Kristina/uL Last Edit by HENOK Holt on 11/25/23 08:53 UA Nitrite Negative Last Edit by HENOK Holt on 11/25/23 08:53 UA Urobilinogen 0.2 mg/dL Last Edit by HENOK Holt on 11/25/23 08:5 3 UA Protein 0 mg/dL Last Edit by HENOK Holt on 11/25/23 08:53 UA pH 6.5 Last Edit by HENOK Holt on 11/25/23 08:53 UA Blood 0 Raimundo/uL Last Edit by HENOK Holt on 11/25/23 08:53 UA Specific [place] 1.005 Last Edit by HENOK Holt on 11/25/23 08: 53 UA Ketone Negative Last Edit by HENOK Holt on 11/25/23 08:53 UA Bilirubin 0 mg/dL Last Edit by HENOK Holt on 11/25/23 08:53 UA Glucose 0 mg/dL Last Edit by HENOK Holt on 11/25/23 08:53 Results Reviewed Results Reviewed: Laboratory Last Values Urine pH (Auto) 6.5 11/25/23 08:42 Specific [place] (Auto) 1.005 11/25/23 08:42 Urine Protein (Auto) 0 mg/dL 11/25/23 08:42 Glucose (UA)(Auto) 0 mg/dL 11/25/23 08:42 Urine Ketones (Auto) Negative 11/25/23 08:42 Urine Blood (Auto) 0 Raimundo/uL 11/25/23 08:42 Urine Nitrite (Auto) Negative 11/25/23 08:42 Urine Bilirubin (Auto) 0 mg/dL 11/25/23 08:42 Urine Urobilinogen (Auto) 0.2 mg/dL 11/25/23 08:42 Leukocyte Esterase (Auto) 0 Kristina/uL 11/25/23 08:42 Assessment & Plan Assessment & Plan (1) Screening PSA (prostate specific antigen): Code(s): Z12.5 - Encounter for screening for malignant neoplasm of prostate Category: Medical (2) BPH NOS w ur obs/LUTS: Code(s): N40.1 - Benign prostatic hyperplasia with lower urinary tract symptoms Category: Medical Plan PSA Today. Follow-up in 6 months. Discontinue Proscar Orders: Orders AMB Post Void Residual by ultrasound Today N39.8 - Other specified disorders of urinary system PSA,Total (Free>4and<10) Today Z12.5 - Encounter for screening for malignant neoplasm of prostate AMB Urinalysis Automated Today Z13.9 - Encounter for screening, unspecified Patient Instructions: The patient had an opportunity to ask questions regarding treatment plan. The patient expressed understanding and agreement with the above treatment plan. The patient is aware they should contact our office by phone for worsening of their current condition or the appearance of new symptoms. Compliance is encouraged with any medications and followup testing that is ordered. It is a privilege to be allowed the opportunity to participate in the urologic care of your patient. If you have any questions or concerns regarding treatment for the above conditions please do not hesitate to contact me. The office telephone contact is [phone]. This note is constructed in part using voice recognition software. While every effort has been made to ensure accuracy pharmaceutical compounding supervisor errors may have been included. Yours sincerely, Nas Quintero MD Coding Level of Care Code Est Pt Level 3 (32442) Diagnoses Screening PSA (prostate specific antigen) Z12.5 BPH NOS w ur obs/LUTS N40.1 CPT Codes Post Residual Void - PVR CPT Code: 45569-Pxiz Void Residual by ultrasound ([id number])
== END 2023-11-25 09:19 | disposition home or self-care (01) ==
LOC: HO.HUSH 08:22
PROVIDERS: PCP Internal Medicine; Visit Provider Urology
DX: Z12.5 Encounter for screening for malignant neoplasm of prostate (principal); N40.1 Benign prostatic hyperplasia with lower urinary tract symptoms; Z13.9 Encounter for screening, unspecified
CPT/HCPCS: 99213

== ENCOUNTER → 2023-11-25 08:22 | Outpatient (BNVA) | payer OTHER, SELFPAY | PROVIDERS: PCP Internal Medicine; Visit Provider Urology | DX: N40.1 Benign prostatic hyperplasia with lower urinary tract symptoms (principal); N13.8 Other obstructive and reflux uropathy; N39.8 Other specified disorders of urinary system | CPT/HCPCS: 51798; 81003 ==

== ENCOUNTER 2023-11-25 09:21 | Outpatient (REF) | payer OTHER, SELFPAY ==
[2023-11-25 11:59] LABS: PSA,Total (Free>4and<10) 2.01 ng/mL (0.00-4.00)
== END 2023-11-25 09:22 | disposition home or self-care (01) ==
LOC: HO.10HDL 09:21
PROVIDERS: Visit Provider Urology
DX: Z12.5 Encounter for screening for malignant neoplasm of prostate (principal); Z13.9 Encounter for screening, unspecified
CPT/HCPCS: 36415; 84153

== ENCOUNTER 2025-07-16 09:09 | Outpatient (REF) | payer OTHER, SELFPAY ==
[2025-07-16 13:46] LABS: Prostate Specific Antigen 6.78 ng/mL (<0.05-4.0)
== END 2025-07-16 09:10 | disposition home or self-care (01) ==
LOC: HO.10HDL 09:09
PROVIDERS: Visit Provider Urology
DX: Z12.5 Encounter for screening for malignant neoplasm of prostate (principal)
CPT/HCPCS: 36415; 84153

== ENCOUNTER 2025-07-26 08:56 | Outpatient (AMB) | payer OTHER, SELFPAY ==
--- NOTE | 2025-07-26 09:00 | A.OFFVIS_ITS ---
Intake Visit Reasons: 8M PVR/UA/Elevated PSA/UA/PVR(set) Intake Note: Reason for Visit: 8M PVR/UA/New Diagnosis: Elevated PSA Urology Meds: Finasteride (Patient reports he is no longer on Finasteride) Blood Thinners: None Labs: PSA: 6.78(07/16/2025) Imaging: None Last PVR: 70ml PVR: 60ml Diplomatic Interpreter Required: No Accompanied by: Self / Same As Patient Allergies codeine Adverse Reaction (Intermediate, Verified 07/26/25 09:01) Vomiting levofloxacin (From Levaquin) Adverse Reaction (Mild, Verified 07/26/25 09:01) Muscle Pain HPI Comments Details: 07/26/25--Rosalio is here for follow-up he has been monitored for BPH and urinary retention. History of TURP on 05/14/2023. Last PSA on 07/16/2024 was 6.78. 11/25/2023 --Rosalio is a 68-year-old male who presents today to the office for a follow-up. Status post TURP 05/14/2023. The patient states he is voiding well he has been on finasteride 5 mg. He has an upcoming road trip with many stops over a 2 month period. I want him to continue the Proscar while on his trip and discontinue once he is back in [place]. Urinalysis negative for leukocytes negative for blood. Bladder scan PVR 70 mL. Plan discussed PSA today follow-up in 6 months. 06/14/2023-He is followed today for post op cystoscopy TURP/medications review. He is status post cystoscopy TURP done on 05/14/2023. He initially presented due to urinary retention requiring a Henry catheter. Also develop orchitis. He states he is doing great. Patient states that he has a good urinary stream. No swelling in the testes. He states that he has started back to walking a mile and has not had any clots with urination. Evaluation today?UA? leukocytes: trace; blood: 1 +. Plan disc--Continue Proscar for 6 months. PSA screening at that time. 11/25/23: Plan discussed PSA today follow-up in 6 months. [facility] Medical History IFG (impaired fasting glucose) GERD (gastroesophageal reflux disease) Pericarditis Mood disorder Neuropathy, lower extremity Urinary retention Surgical History History of cataract surgery History of colonoscopy Family History Father CAD (coronary atherosclerotic disease) HTN (hypertension) Mother No problems noted. Social History Household Members: Significant Other Housing: House Do you presently have visiting nurse or other home services: No Alcohol intake: never Patient Tobacco Use Status: Former Tobacco user Years Smoked: 10 Second Hand Smoke Exposure: No Substance Use Type: Marijuana service: No Office Procedures Post Void Residual Post Residual Void Post Void Residual (PVR): 60 [id number] Void Residual by ultrasound Results AMB Urinalysis, Automated UA Leukoctes 0 Kristina/uL Last Edit by HENOK Barth on 07/26/25 09:17 UA Nitrite Negative Last Edit by HENOK Barth on 07/26/25 09:17 UA Urobilinogen 0.2 mg/dL Last Edit by Candi Rojas [facility] on 07/26/25 09:1 7 UA Protein 0 mg/dL Last Edit by Candi Rojas Francoise on 07/26/25 09:17 UA pH 6.0 Last Edit by Candi Rojas [facility] on 07/26/25 09:17 UA Blood 10 Raimundo/uL Last Edit by HENOK Barth on 07/26/25 09:17 UA Specific [place] 1.015 Last Edit by Candi Rojas Francoise on 07/26/25 09: 17 UA Ketone Negative Last Edit by Candi Rojas Francoise on 07/26/25 09:17 UA Bilirubin 0 mg/dL Last Edit by HENOK Barth on 07/26/25 09:17 UA Glucose 0 mg/dL Last Edit by Candi Rojas [facility] on 07/26/25 09:17 Results Reviewed Results Reviewed: Laboratory Last Values Urine pH (Auto) 6.0 07/26/25 09:09 Specific [place] (Auto) 1.015 07/26/25 09:09 Urine Protein (Auto) 0 mg/dL 07/26/25 09:09 Glucose (UA)(Auto) 0 mg/dL 07/26/25 09:09 Urine Ketones (Auto) Negative 07/26/25 09:09 Urine Blood (Auto) 10 Raimundo/uL 07/26/25 09:09 Urine Nitrite (Auto) Negative 07/26/25 09:09 Urine Bilirubin (Auto) 0 mg/dL 07/26/25 09:09 Urine Urobilinogen (Auto) 0.2 mg/dL 07/26/25 09:09 Leukocyte Esterase (Auto) 0 Kristina/uL 07/26/25 09:09 Assessment & Plan Assessment & Plan Orders: Orders AMB Urinalysis Automated Today Z13.9 - Encounter for screening, unspecified AMB Post Void Residual by ultrasound Today N40.1 - Benign prostatic hyperplasia with lower urinary tract symptoms Coding CPT Codes Post Residual Void - PVR CPT Code: 08737-Vmdt Void Residual by ultrasound ([id number])
--- OUTSIDE RECORDS SUMMARY | 2025-07-26 09:08 | XMS_ITS | Clinical Summary ---
Author Organization [facility] Address [address] [place] [id number] Phone Care Team Providers Care Photovoltaic Installer Name Role Phone Javy Varma MD Primary Care Provider [phone] Allergies Active Allergy Reactions Criticality Noted Date Comments Hydrocodone-Acetaminophen 05/20/2023 Medications omeprazole (PRILOSEC) 40 MG capsule 05/01/2023 Active colchicine (COLCRYS) 0.6 mg tablet TAKE 1 TABLET BY MOUTH TWICE A DAY CONTINUE FOR 3 MONTHS 05/14/2023 Active finasteride (PROSCAR) 5 mg tablet TAKE 1 TABLET BY MOUTH DAILY FOR 90 DAYS 05/13/2023 Active pregabalin (LYRICA) 75 MG capsule Take 1 capsule by mouth 2 (two) times a day. 05/15/2023 Active zolpidem (AMBIEN) 10 mg tablet Take 1 tablet by mouth every morning. 05/08/2023 Active Active Problems Problem Noted Date Diagnosed Date Myopericarditis 05/20/2023 Assessment & Plan (05/20/2023 8:44 AM EDT): He was diagnosed with myopericarditis. He took his colchicine and did not require any ibuprofen because he was completely pain-free after that first day. He has been feeling excellent. No chest pain at rest or with exertion. EKG in the office today shows normal sinus rhythm, no ST abnormalities, heart rate of 69 bpm I suggested that the patient have a nuclear stress test before his next follow- up with Dr. Kearns. The patient would like to hold off on that. He tells me that he has been walking and he has not had any symptoms. From a cardiac standpoint he feels excellent. We will have him meet with Dr. Kearns in 3 months and at that point he can order a stress test if he feels it is necessary. Social History Tobacco Use Types Packs/Day Years Used Date Smoking Tobacco: Never Smokeless Tobacco: Never Alcohol Use Standard Drinks/Week Comments Yes 1 (1 standard drink = 0.6 oz pur e alcohol) Education Answer Date Recorded Are you interested in more education? Not on letha e 04/02/2023 Are you concerned about learning? Not on file 04/02/2023 No 04/02/2023 No 04/02/2023 Digital Access Answer Date Recorded No 04/02/2023 No 04/02/2023 Reliable internet access at home? Not on file 04/02/2023 Device with a working camera? Not on file Sex and Gender Information Value Date Recorded Sex Assigned at Not on file Legal Sex Male 9:42 AM EDT Gender Identity Not on file Sexual Orientation Not on file Last Filed Vital Signs Vital Sign Reading Time Taken Comments Blood Pressure 134/80 05/20/2023 8:09 AM EDT Pulse 73 05/20/2023 8:09 AM EDT Temperature - - Respiratory Rate - - Oxygen Saturation 99% 05/20/2023 8:09 AM EDT Inhaled Oxygen Concentration - - Weight 77.1 kg (170 lb) 05/20/2023 8:09 AM EDT Height 175.3 cm (5' 9 ) 05/20/2023 8:09 AM EDT Body Mass Index 25.1 05/20/2023 8:09 AM EDT Plan of Treatment Health Maintenance Due Date Last Done Comments Adult Td,Tdap Booster 1957 LIPID PANEL 1957 DEPRESSION SCREENING 1969 HEPATITIS C SCREENING 1975 SCREENING FOR DIABETES 1992 COLOGUARD 2002 COLONOSCOPY 2002 COLORECTAL CANCER SCREENING 2002 FIT TEST 2002 FOBT 2002 SIGMOIDOSCOPY 2002 VIRTUAL COLONOSCOPY 2002 PNEUMOCOCCAL VACCINES (50+ y ears) (1 of 1 - PCV) 2007 ZOSTER VACCINES (1 of 2) 2007 INFLUENZA VACCINE (#1) 2025 COVID-19 VACCINE ( - 2025-2 6 season) 2025 RSV VACCINE (1 - 1-dose 75+ series) 2032 SMOKING STATUS SCREENING (On ce After 26 Yrs) Completed 05/20/2023 HEPATITIS A VACCINES Aged Out No long er eligible based on patient's age to complete this topic HIB VACCINES Aged Out No longer eligi ble based on patient's age to complete this topic MENINGOCOCCAL VACCINES (ACWY) Aged Out No longer eligible based on patient's age to complete this topic MENINGOCOCCAL VACCINES (B) Aged Out N o longer eligible based on patient's age to complete this topic Medical Devices Not on file Insurance [facility] OUT OF [facility] PPO [facility] OUT OF [facility] PPO [employer] OUT OF STATE PPO [employer] OUT OF STATE PPO [employer] OUT OF STATE PPO Member Subscriber Plan / Payer (Ef fective 2022-) Name:Rosalio Tinsley Relation to Subscriber:Self Name:Roaslio Tinsley Payer ID:[id number] (NAIC) Group ID:Not on file Type:PPO Address: [address] [place] [id number] BLUE [employer] OUT OF STATE PPO Care Teams Photovoltaic Installer Relationship Specialty Start Date End Date Jayv Varma MD [address] [place] [address] PCP - General Internal Medicine 04/02/23 Additional Source Comments The information contained in this document represents components of the legal health record. It is not the complete legal health record.[facility]
== END 2025-07-26 09:48 | disposition home or self-care (01) ==
LOC: HO.HUSH 08:56
PROVIDERS: PCP Internal Medicine; Visit Provider Urology
DX: Z13.9 Encounter for screening, unspecified (principal)